=== PATIENT | male | born 1955 | race Caucasian/White ===

== ENCOUNTER 2016-12-19 11:54 | Emergency (ER) | payer OTHER ==
[~2016-12-19] VITALS: Ht 172.7 cm; Wt 133.0 kg
[2016-12-19 11:55] VITALS: BP 120/63; PULSE 104; RESP 24; TEMP 99.5; O2SAT 93
--- NOTE | 2016-12-19 12:15 | PD ---
HPI . blister on right foot Chief Complaint: Diabetic Time Seen by Provider: 12:14 Travel History International Travel<30 days: No Contact w/Intl Traveler<30days: No Traveled to known affect area: No History of Present Illness HPI 61-year-old male with history of diabetes here with complaints of right foot blister. Patient tells me that he had a blister that opened up and they want to have it checked to make sure it is not infected. reports that he develops "pus pockets," and they want to make sure that he does not currently have one. Patient reports pain in the right foot near the blister rated as 8/ 10 without any further radiation. He takes Ultram for daily pain, and tells me that this hasn't really helped his foot blister. He also reports history of neuropathy and tells me that his right leg has been hurting more than usual. He does report driving from [place] here for vacation. They're returning back home on Thursday. He denies any chest pain or shortness of breath. They deny any drainage from this wound. He has no other complaints. PFSH Past Medical History Hx Anticoagulant Therapy: Yes (81MG ASA DAILY) Cardiovascular Problems: Yes ([place], HTN) Diabetes: Yes Respiratory: Yes (ASTHMA) ?: Not Social History Tobacco Use: No Allergies-Medications (Allergen,Severity, Reaction): Coded Allergies: No Known Allergies (Unverified , 12/19/16) Reported Meds & Prescriptions Reported Meds & Active Scripts Active Reported Magnesium (Magnesium Oxide) 400 Mg Tablet PO DAILY Vitamin D (Cholecalciferol) 1,000 Unit Tab Unknown Dose PO DAILY Januvia (Sitagliptin Phosphate) 100 Mg Tab Unknown Dose PO DAILY Lisinopril 10 Mg Tab 10 Mg PO DAILY Metoprolol Tartrate 100 Mg Tab Unknown Dose PO BID Proair Hfa 8.5 GM Inh (Albuterol Sulfate) 90 Mcg/Act Aer 2 Puff INH Q4-6H PRN 108 mcg/actuation Levemir Inj (Insulin Detemir) 1,000 unit/ 10 ML Vial 62 Units SQ BID Do not mix with any other Insulin. Review of Systems General / Constitutional: No: Fever Eyes: No: Visual changes HENT: No: Headaches Cardiovascular: No: Chest Pain or Discomfort Respiratory: No: Shortness of Breath Gastrointestinal: No: Abdominal Pain Genitourinary: No: Dysuria Musculoskeletal: Positive: Pain (right leg ) Skin: Positive Other (right foot blister), No Rash Neurologic: No: Weakness Psychiatric: No: Depression Endocrine: No: Polydipsia Hematologic/Lymphatic: No: Easy Bruising Physical Exam Narrative GENERAL: AAO x 3, no acute distress, Well-nourished, well-developed patient. SKIN: Warm and dry. No visible rashes or bruising. right distal lateral foot small 2 cm x 1.5 cm circular blister without any evidence of infection, drainage , erythema or edema. HEAD: Normocephalic and atraumatic. EYES: No scleral icterus. No injection or drainage. ENT: No nasal drainage noted. Mucous membranes pink. Airway patent. NECK: Supple, trachea midline. No JVD. CARDIOVASCULAR: Regular rate and rhythm without murmurs, gallops, or rubs. RESPIRATORY: Breath sounds equal bilaterally. No accessory muscle use. No rhonchi or rales. GASTROINTESTINAL: Abdomen soft, non-tender, nondistended. EXTREMITIES: No cyanosis, right anterior [place] + pain, pain in right calf. Left leg normal. BACK: Nontender without obvious deformity. No CVA tenderness. 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 Data Data Last Documented VS Vital Signs Date Time Temp Pulse Resp B/P Pulse Ox O2 Delivery O2 Flow Rate FiO2 12/19/16 14:52 77 20 115/58 95 Room Air 12/19/16 11:55 99.5 Orders Us Leg Venous Doppler (12/19/16 12:20) Ketorolac Inj (Toradol Inj) (12/19/16 12:45) Post Op Boot (Shoe) (12/19/16 ) [facility] Medical Decision Making Medical Screen Exam Complete: Yes Emergency Medical Condition: Yes Medical Record Reviewed: Yes Differential Diagnosis Foot ulcer, acute on chronic pain, neuropathy, DVT, less likely cellulitis, less likely abscess Narrative Course 61-year-old male here with complaints of a right foot blister. He also reports pain in his right leg. With his risk factor of recent travel, we'll go ahead and check an ultrasound. The right foot blister is not acutely infected. I do not recommend any intervention other than daily dressing changes. I have discussed this with the patient and his at length. Recommend follow-up with a primary care provider in [place]. Venous Doppler of the right lower extremity negative for DVT. I have discussed all the results with the patient and his . Postop shoe was given for support of the right foot. I recommend offloading as much as possible. Clean dressing was provided before discharge. Case discussed with Dr. Angeles. He was in agreement with the treatment plan. Patient verbalized understanding of instructions, questions were answered, and thanked me for their care. I advised them if their condition worsens, please return to the nearest emergency room for further care. Diagnosis Primary Impression: Blister of foot without infection Qualified Code: S90.821A - Blister of foot without infection, right, initial encounter Patient Instructions: General Instructions Additional Instructions: Please return to emergency department if your symptoms return or worsen. Follow up with your primary care provider. [place] for worsening signs of infection which include fever, increased redness , increased warmth, purulent drainage, increased swelling or streaking. If any of these develop, please go to the nearest emergency room. Try to keep pressure off of this right foot as much as possible. You can continue to use her tramadol as needed for pain. You can also take ibuprofen [id number] as needed. Disposition: 01 DISCHARGE HOME Condition: Stable Asha Rg Dec 19, 2016 12:14
[2016-12-19] MEDS ORDERED: SITA1TAB2 PO (12:35)
[2016-12-19] MEDS ORDERED: ALBUAER3 INH (12:35)
[2016-12-19] MEDS ORDERED: LEVEMIR SQ (12:35)
[2016-12-19] MEDS ORDERED: METO100T PO (12:35)
[2016-12-19] MEDS ORDERED: LISI10TA3 PO (12:35)
[2016-12-19] MEDS ORDERED: VITA100064 PO (12:35)
[2016-12-19] MEDS ORDERED: MAGN400T24 PO (12:35)
[2016-12-19] MEDS ORDERED: KETOROLAC TROMETHAMINE 60 MG/2 ML (IM) VIAL IM ONE (12:45)
--- NOTE | 2016-12-19 13:38 | RADRPT ---
EXAM DATE/TIME: 12/19/2016 12:51 [facility] COMPARISON: No previous studies available for comparison. INDICATIONS : Right leg pain. MEDICAL HISTORY : Hypertension. Diabetes mellitus type 2. Asthma SURGICAL HISTORY : None. ENCOUNTER: Initial ACUITY: 4 - 6 days PAIN SCORE: 8/10 LOCATION: Right leg. TECHNIQUE: Venous ultrasound of the leg was performed from the inguinal ligament to the proximal calf. Real-nikhil e, color Doppler and spectral tracing, compression and augmentation techniques were used. FINDINGS: There is normal compressibility of the deep venous system from the inguinal region to the proximal ca lf. No echogenic clot is seen in the lumen of the common femoral, femoral, popliteal, and posterior tibial veins. There is a normal response of the venous system to proximal and distal augmentation an d respiration. CONCLUSION: Normal examination. Oscar Amaral MD on December 19, 2016 at 13:35 Board Certified Radiologist. This report was verified electronically.
[2016-12-19 14:52] VITALS: BP 115/58; PULSE 77; RESP 20; O2SAT 95
== END 2016-12-19 15:15 | disposition home or self-care (01) ==
LOC: NEPC 11:54
DX: S90.821A Blister (nonthermal), right foot, initial encounter (principal); M79.604 Pain in right leg; E11.9 Type 2 diabetes mellitus without complications; I10 Essential (primary) hypertension; Z79.4 Long term (current) use of insulin; Z79.82 Long term (current) use of aspirin; Z86.69 Personal history of other diseases of the nervous system and sense organs; Z86.79 Personal history of other diseases of the circulatory system; Z87.09 Personal history of other diseases of the respiratory system; X58.XXXA Exposure to other specified factors, initial encounter
CPT/HCPCS: 93971; 96372; 99285; J1885; L3260

== ENCOUNTER 2016-12-21 10:30 | Inpatient (IN) | payer OTHER ==
[2016-12-21] VITALS (9 sets, daily range): BP systolic 103–146; BP diastolic 60–76; PULSE 67–97; RESP 16–20; TEMP 98.5–99.9; O2SAT 94–99
[~2016-12-21] VITALS: Ht 172.7 cm; Wt 135.0 kg
[~2016-12-21 10:30] MED LIST: ALBUAER3 INH; LEVEMIR SQ; LISI10TA3 PO; MAGN400T24 PO; METO100T PO; SITA1TAB2 PO; VITA100064 PO
[2016-12-21] MEDS ORDERED: VANCOMYCIN INJ 1,000 MG in SODIUM CHLOR 0.9% 250 ML INJ 250 ML IV ONE (11:15)
[2016-12-21] MEDS ORDERED: SODIUM CHLOR 0.9% 1000 ML INJ 1,000 ML IV ONE ×2 (11:15→14:15)
--- NOTE | 2016-12-21 11:18 | PD ---
HPI Chief Complaint: Skin Problem Time Seen by Provider: 11:16 Travel History International Travel<30 days: No Contact w/Intl Traveler<30days: No Traveled to known affect area: No History of Present Illness HPI 61-year-old male presents to the emergency department for evaluation of right foot infection. Patient states he first noticed a blister to the plantar aspect of the right foot approximate 5 days ago. He said emergency department 2 days ago. At that time, it was not felt to be infected. Venous Doppler ultrasound of the right lower extremity was ordered which was normal. Patient was discharged home without antibiotics at that time. He states over the past 2 days, symptoms have worsened. He reports low-grade fevers. Current temperature is 99.9. He states he does not feel well. He states that he typically gets this way when he has infection. Patient denies any injury. Patient denies history of diabetic foot infections, but states he does have history of infections. He has a history of CAD with cardiac stents, hypertension, diabetes, diabetic neuropathy. He currently is not on anticoagulants other than a baby aspirin daily. Patient denies any chest pain or short of breath. No abdominal pain. No vomiting. Patient does report history of one kidney from . He reports history of acute kidney injury with infection. PFSH Past Medical History Hx Anticoagulant Therapy: Yes (81MG ASA DAILY) Cardiac Catheterization: Yes (many stents) Cardiovascular Problems: Yes Coronary Artery Disease: Yes Diabetes: Yes Patient Takes Glucophage: No Hypertension: Yes Respiratory: Yes Past Surgical History Coronary Artery Bypass Graft: Yes (7) Social History Alcohol Use: No Tobacco Use: No Substance Use: No Allergies-Medications (Allergen,Severity, Reaction): Coded Allergies: No Known Allergies (Unverified , 12/19/16) Reported Meds & Prescriptions Reported Meds & Active Scripts Active Reported [Imdur] Gabapentin 400 Mg Cap 400 Cap PO TID Lovastatin 20 Mg Tab 20 Mg PO HS Magnesium (Magnesium Oxide) 400 Mg Tablet PO DAILY Vitamin D (Cholecalciferol) 1,000 Unit Tab Unknown Dose PO DAILY Januvia (Sitagliptin Phosphate) 100 Mg Tab Unknown Dose PO DAILY Lisinopril 10 Mg Tab 10 Mg PO DAILY Metoprolol Tartrate 100 Mg Tab Unknown Dose PO BID Proair Hfa 8.5 GM Inh (Albuterol Sulfate) 90 Mcg/Act Aer 2 Puff INH Q4-6H PRN 108 mcg/actuation Levemir Inj (Insulin Detemir) 1,000 unit/ 10 ML Vial 62 Units SQ BID Do not mix with any other Insulin. Review of Systems Except as stated in HPI: all other systems reviewed are Neg Physical Exam Narrative GENERAL: Well-nourished, well-developed male patient, afebrile. SKIN: Focused skin assessment warm/dry. Patient has large open blister to the right plantar foot with surrounding edema and erythema on the plantar foot as well as the dorsal aspect of the right foot. HEAD: Normocephalic. Atraumatic. EYES: No scleral icterus. No injection or drainage. NECK: Supple, trachea midline. No JVD or lymphadenopathy. CARDIOVASCULAR: Regular rate and rhythm without murmurs, gallops, or rubs. Right pedal pulses easily found with Doppler. Capillary refill less than 2 seconds to the digits of the right foot. RESPIRATORY: Breath sounds equal bilaterally. No accessory muscle use. Lungs sounds are clear to auscultation. GASTROINTESTINAL: Abdomen soft, non-tender, nondistended. MUSCULOSKELETAL: No cyanosis, or edema. BACK: Nontender without obvious deformity. No CVA tenderness. Data Data Last Documented VS Vital Signs Date Time Temp Pulse Resp B/P Pulse Ox O2 Delivery O2 Flow Rate FiO2 12/21/16 11:16 18 99 Nasal Cannula 2 12/21/16 11:03 99.9 92 146/76 Orders Complete Blood Count With Diff (12/21/16 11:11) Comprehensive Metabolic Panel (12/21/16 11:11) Lactic Acid Sepsis Protocol (12/21/16 11:11) Blood Culture (12/21/16 11:11) Ecg Monitoring (12/21/16 11:11) Iv Access Insert/Monitor (12/21/16 11:11) Oximetry (12/21/16 11:11) Oxygen Administration (12/21/16 11:11) Sodium Chlor 0.9% 1000 Ml Inj (Ns 1000 M (12/21/16 11:15) Westergren Sedimentation Rate (12/21/16 11:11) C-Reactive Protein (Crp) (12/21/16 11:11) Foot, Complete ([id number]) (12/21/16 ) Vancomycin Inj (Vancomycin Inj) (12/21/16 11:15) Tetanus/Diphtheria Tox Adult (Tetanus/Di (12/21/16 11:30) Morphine Inj (Morphine Inj) (12/21/16 12:30) Labs Laboratory Tests Test 12/21/16 12/21/16 11:24 11:25 White Blood Count 13.7 TH/MM3 Red Blood Count 4.89 MIL/MM3 Hemoglobin 13.0 GM/DL Hematocrit 39.6 % Mean Corpuscular Volume 81.0 FL Mean Corpuscular Hemoglobin 26.6 PG Mean Corpuscular Hemoglobin 32.8 % Concent Red Cell Distribution Width 17.1 % Platelet Count 201 TH/MM3 Mean Platelet Volume 7.5 FL Neutrophils (%) (Auto) 87.9 % Lymphocytes (%) (Auto) 5.6 % Monocytes (%) (Auto) 5.6 % Eosinophils (%) (Auto) 0.5 % Basophils (%) (Auto) 0.4 % Neutrophils # (Auto) 12.0 TH/MM3 Lymphocytes # (Auto) 0.8 TH/MM3 Monocytes # (Auto) 0.8 TH/MM3 Eosinophils # (Auto) 0.1 TH/MM3 Basophils # (Auto) 0.1 TH/MM3 CBC Comment DIFF FINAL Differential Comment Erythrocyte Sedimentation Rate 45 mm/hr Sodium Level 127 MEQ/L Potassium Level 5.4 MEQ/L Chloride Level 97 MEQ/L Carbon Dioxide Level 22.8 MEQ/L Anion Gap 7 MEQ/L Blood Urea Nitrogen 38 MG/DL Creatinine 1.52 MG/DL Estimat Glomerular Filtration 47 ML/MIN Rate Random Glucose 360 MG/DL Calcium Level 8.7 MG/DL Total Bilirubin 1.1 MG/DL Aspartate Amino Transf 27 U/L (AST/SGOT) Alanine Aminotransferase 34 U/L (ALT/SGPT) Alkaline Phosphatase 98 U/L C-Reactive Protein 29.00 MG/DL Total Protein 8.2 GM/DL Albumin 3.1 GM/DL Lactic Acid Level 1.4 mmol/L [facility] Medical Decision Making Medical Screen Exam Complete: Yes Emergency Medical Condition: Yes Medical Record Reviewed: Yes Interpretation(s) x-ray right foot - CONCLUSION: Small linear foreign body is seen in the soft tissues along the plantar lateral aspect near the fifth metatarsal. There is also soft tissue swelling in this location. Differential Diagnosis Cellulitis versus abscess versus osteomyelitis versus sepsis Narrative Course 61-year-old male presents to the emergency department for evaluation of right foot infection that started about 5 days ago with a blister. Patient has not yet been on antibiotics. He does have significant cellulitis to the right plantar and dorsal foot. CBC, CMP, lactic acid, blood cultures 2, sedimentation rate, CRP are ordered and pending. Tetanus immunization is updated. X-ray of the right foot is ordered and pending. Vancomycin 1 g IV and normal saline 1 L IV bolus are given. CBC shows leukocytosis of 13.7, neutrophilia 87.9. CMP shows hyponatremia 127, hyperkalemia 5.4, BUN 38, creatinine 1.52, glucose 360. Lactic acid is 1.4. Sed rate is 45. CRP is 29. X-ray of the right foot shows small linear foreign body is seen in the soft tissues along the plantar lateral aspect near the fifth metatarsal. There is also soft tissue swelling in this location. Patient will be admitted to the hospital for further evaluation. Patient verbalizes agreement to this. Residents are paged for admission. Residents accepted admission. Sepsis Criteria SIRS Criteria (2 or more): WBC > 05043, < 4000 or > 10% bands Diagnosis Primary Impression: Cellulitis of right foot Additional Impressions: Hyponatremia Hyperkalemia Admitting Information Admitting Physician Requests: Admit Cathie Cohen Dec 21, 2016 11:18
[2016-12-21] MEDS ORDERED: TETANUS/DIPHTHERIA TOXOID ADULT 0.5 ML VIAL IM ONE (11:30)
--- NOTE | 2016-12-21 11:41 | RADRPT ---
EXAM DATE/TIME: 12/21/2016 11:29 [facility] COMPARISON: No previous studies available for comparison. INDICATIONS : Right foot pain and swelling. Patient states he has had a blister for one week. MEDICAL HISTORY : Hypertension. Diabetes mellitus type II. SURGICAL HISTORY : None. ENCOUNTER: Initial ACUITY: 1 week PAIN SCORE: 6/10 LOCATION: Right foot. FINDINGS: Three view examination of the right foot demonstrates no dislocation, or fracture. The tarsal bones appear intact. There is soft tissue swelling along the plantar surface of the foot. There appears to be a small radio opaque foreign body in the soft tissues along the plantar lateral aspect near the f ifth metatarsal. Vascular calcifications are seen in the soft tissues. CONCLUSION: Small linear foreign body is seen in the soft tissues along the plantar lateral aspect near the fifth metatarsal. There is also soft tissue swelling in this location. Stanton Rico MD on December 21, 2016 at 11:37 Board Certified Radiologist. This report was verified electronically.
[2016-12-21 11:50] LABS: BASOPHIL # 0.1 TH/MM3 (0-0.2); BASOPHIL % 0.4 % (0.0-2.0); EOSINOPHIL # 0.1 TH/MM3 (0-0.4); EOSINOPHIL % 0.5 % (0.0-4.0); HEMATOCRIT 39.6 % (39.0-51.0); HEMO FLAGS DIFF FINAL; LYMPH % 5.6 % (9.0-44.0); LYMPHOCYTE # 0.8 TH/MM3 (1.0-4.8); MEAN CORPUSCULAR HEMOGLOBIN 26.6 PG (27.0-34.0); MEAN CORPUSCULAR HGB CONC 32.8 % (32.0-36.0); MONO % 5.6 % (0.0-8.0); NEUT % 87.9 % (16.0-70.0); PLATELET COUNT 201 TH/MM3 (150-450); RED BLOOD COUNT 4.89 MIL/MM3 (4.50-5.90); RED CELL DISTRIBUTION WIDTH 17.1 % (11.6-17.2); WHITE BLOOD COUNT 13.7 TH/MM3 (4.0-11.0)
[2016-12-21 12:09] LABS: ALT (GPT) 34 U/L (12-78)
[2016-12-21 12:12] LABS: ANION GAP 7 MEQ/L (5-15); AST (GOT) 27 U/L (15-37); BICARBONATE 22.8 MEQ/L (21.0-32.0); BLOOD UREA NITROGEN 38 MG/DL (7-18); CHLORIDE 97 MEQ/L (98-107); GLOMERULAR FILTRATION RATE 47 ML/MIN (>89); POTASSIUM 5.4 MEQ/L (3.5-5.1); SODIUM (NA) 127 MEQ/L (136-145)
[2016-12-21 12:17] LABS: ALKALINE PHOSPHATASE 98 U/L (45-117); TOTAL BILIRUBIN ADULT 1.1 MG/DL (0.2-1.0)
[2016-12-21] MEDS ORDERED: MORPHINE SULFATE 4 MG/ML INJ IV PUSH ONE (12:30)
[2016-12-21] MEDS ORDERED: GABA400C5 PO (12:41)
[2016-12-21] MEDS ORDERED: Imdur (12:41)
[2016-12-21] MEDS ORDERED: LOVA20TA PO (12:41)
[2016-12-21] MEDS ORDERED: PIPERACIL-TAZO 3.375 GM PREMIX 50 ML IV ONE (13:30)
--- NOTE | 2016-12-21 13:33 | HHI.HP ---
HPI Service Family Medicine Primary Care Physician Unknown Admission Diagnosis right foot celluliits, hyponatremia, hyperkalemia Diagnoses: International Travel<30 Days: No Contact w/Intl Traveler<30days: No Known Affected Area: No History of Present Illness Patient is a 61-year-old male with a history of uncontrolled diabetes. Presented today due to worsening right foot cellulitis. 2 days ago patient was found to have a right foot blister at which time he presented to the ED. Did not appear to be infectious at the time and was discharged with no antibiotics. He presented again today due to worsening malaise, decreased appetite, fatigue , mild subjective fever, dizziness, headache. Pain described as a constant ache. No associated nausea/vomiting or dysuria. No history of trauma or preceding incident to lesion. Was walking around the water at [place] without shoes when he noticed initial blister. No ocean or beach exposure. History is significant for prior MRSA infections of lower legs, back, face. Severe peripheral neuropathy limits sensation of feet. (Manuela Peña MD R2) Review of Systems Constitutional: COMPLAINS OF: Fever, Dizziness, Change in appetite Eyes: DENIES: Eye inflammation Ears, nose, mouth, throat: DENIES: Throat pain, Running Nose Respiratory: DENIES: Cough, Sputum production, Shortness of breath Cardiovascular: COMPLAINS OF: Lower Extremity Edema, DENIES: Chest pain Gastrointestinal: DENIES: Abdominal pain, Nausea, Vomiting Genitourinary: DENIES: Dysuria Musculoskeletal: COMPLAINS OF: Joint Swelling Integumentary: COMPLAINS OF: Abnormal pigmentation Neurologic: COMPLAINS OF: Headache, Paresthesias (Manuela Peña MD R2) Past Family Social History Past Medical History DM with peripheral neuropathy, A1c around 11 HTN HLD Asthma CAD: required 4-6 stents and CABG VT x2 last episode 2014 Past Surgical History CABG Stents x4-6 Adenoid/tonsill/uvula removal for sleep apnea Reported Medications Reported Meds & Active Scripts Active Reported [Imdur] Gabapentin 400 Mg Cap 400 Cap PO TID Lovastatin 20 Mg Tab 20 Mg PO HS Magnesium (Magnesium Oxide) 400 Mg Tablet PO DAILY Vitamin D (Cholecalciferol) 1,000 Unit Tab Unknown Dose PO DAILY Januvia (Sitagliptin Phosphate) 100 Mg Tab Unknown Dose PO DAILY Lisinopril 10 Mg Tab 10 Mg PO DAILY Metoprolol Tartrate 100 Mg Tab Unknown Dose PO BID Proair Hfa 8.5 GM Inh (Albuterol Sulfate) 90 Mcg/Act Aer 2 Puff INH Q4-6H PRN 108 mcg/actuation Levemir Inj (Insulin Detemir) 1,000 unit/ 10 ML Vial 62 Units SQ BID Do not mix with any other Insulin. (Manuela Peña MD R2) Allergies: Coded Allergies: No Known Allergies (Unverified , 12/19/16) Family History Mother: lived to 75 Father: crime scene examiner, lung disease Social History Lives in [place] Tobacco: Denies Alcohol: denies Illicit: Denies (Manuela Peña MD R2) Physical Exam Vital Signs Vital Signs Date Time Temp Pulse Resp B/P Pulse Ox O2 Delivery O2 Flow Rate FiO2 12/21/16 11:16 18 99 Nasal Cannula 2 12/21/16 11:16 98 Nasal Cannula 2 12/21/16 11:03 99.9 92 18 146/76 97 Nasal Cannula 2 12/21/16 10:59 91 18 12/21/16 10:32 99.2 97 16 128/73 97 Physical Exam GENERAL: This is a well-nourished, well-developed patient, in no apparent distress. Resting comfortably in bed. SKIN: * Right foot erythema on plantar and dorsal aspect up to lateral malleolus. Warm to touch. 4cm liter lesion on lateral aspect of the plantar foot. No active drainage. * No fluctuance or evidence of abscess. No induration. * Left foot unremarkable EYES: Pupils equal round and reactive. Extraocular motions intact. Very mild scleral icterus. No injection or drainage. ENT: Nose without bleeding, purulent drainage. Throat without erythema, tonsillar hypertrophy or exudate. Airway patent. NECK: Trachea midline. No lymphadenopathy. CARDIOVASCULAR: Regular rate and rhythm without murmurs, gallops, or rubs. RESPIRATORY: Clear to auscultation. Breath sounds equal bilaterally. No wheezes , rales, or rhonchi. GASTROINTESTINAL: Abdomen soft, non-tender, nondistended. No guarding. MUSCULOSKELETAL: Extremities without clubbing, cyanosis. 1+ pitting edema on right lower extremity. No calf tenderness. 2+pedal pulses bilaterally NEUROLOGICAL: Awake and alert. Motor grossly within normal limits. Decreased sensation on bilateral feet. Normal speech. Laboratory Laboratory Tests Test 12/21/16 12/21/16 11:24 11:25 White Blood Count 13.7 Red Blood Count 4.89 Hemoglobin 13.0 Hematocrit 39.6 Mean Corpuscular Volume 81.0 Mean Corpuscular Hemoglobin 26.6 Mean Corpuscular Hemoglobin 32.8 Concent Red Cell Distribution Width 17.1 Platelet Count 201 Mean Platelet Volume 7.5 Neutrophils (%) (Auto) 87.9 Lymphocytes (%) (Auto) 5.6 Monocytes (%) (Auto) 5.6 Eosinophils (%) (Auto) 0.5 Basophils (%) (Auto) 0.4 Neutrophils # (Auto) 12.0 Lymphocytes # (Auto) 0.8 Monocytes # (Auto) 0.8 Eosinophils # (Auto) 0.1 Basophils # (Auto) 0.1 CBC Comment DIFF FINAL Differential Comment Erythrocyte Sedimentation Rate 45 Sodium Level 127 Potassium Level 5.4 Chloride Level 97 Carbon Dioxide Level 22.8 Anion Gap 7 Blood Urea Nitrogen 38 Creatinine 1.52 Estimat Glomerular Filtration 47 Rate Random Glucose 360 Calcium Level 8.7 Total Bilirubin 1.1 Aspartate Amino Transf 27 (AST/SGOT) Alanine Aminotransferase 34 (ALT/SGPT) Alkaline Phosphatase 98 C-Reactive Protein 29.00 Total Protein 8.2 Albumin 3.1 Lactic Acid Level 1.4 Date/Time Procedure Status Source Growth 12/21/16 11:25 Aerobic Blood Culture Received Blood Peripheral Pending 12/21/16 11:25 Anaerobic Blood Culture Received Blood Peripheral Pending (Manuela Peña MD R2) Result Diagram: 12/21/16 1124 12/21/16 1124 Imaging Last Impressions Foot X-Ray 12/21/16 0000 Signed Impressions: Service Date/Time: Wednesday, December 21, 2016 11:29 - CONCLUSION: Small linear foreign body is seen in the soft tissues along the plantar lateral aspect near the fifth metatarsal. There is also soft tissue swelling in this location. Stanton Rico MD (Manuela Peña MD R2) Assessment and Plan Assessment and Plan 61-year-old male with history significant for uncontrolled diabetes. Admitted for right foot cellulitis Code Status Full Discussed Condition With Dr. Marquez (Manuela Peña MD R2) Attending Attestation The patient has been seen and examined. The chart and all resident notes have been reviewed. I agree that inpatient care is appropriate and that a two midnight stay is expected for the reasons documented in the resident history and physical. I have discussed this with the resident and certify the resident s order for inpatient admission. Patient seen and examined. Case reviewed and discussed Please refer to resident H&P for further details regarding HPI, ROS, PMH, SurgHx , FH and SocHx In summary, patient is a 61yoM with a history of uncontrolled DM peripheral neuropathy presenting with worsening redness, edema and drainage from a R foot wound. Patient reports he first noted the wound 4 days prior to admission. Denies fevers, chills. [place] and has not been checking his sugars. He is seen in his hospital bed, reporting he is already feeling better, he ate a full meal, which previously he hasn't been able to eat in days. GENERAL: obese male, wdwn NAD, sitting up in bed SKIN: Warm and dry. R lateral plantar aspect of foot with 2cm necrotic foot wound. There is surrounding erythema and edema. Significant loss of sensation in feet 2/2 neuropathy. HEAD: Normocephalic. At EYES: No scleral icterus. No injection or drainage. ENT: OP Clear. mmm NECK: Supple, trachea midline. No JVD or lymphadenopathy. CARDIOVASCULAR: Regular rate and rhythm without murmurs, gallops, or rubs. RESPIRATORY: Breath sounds equal bilaterally. No accessory muscle use. GASTROINTESTINAL: Abdomen soft, non-tender, nondistended. MUSCULOSKELETAL: No cyanosis,there is 1+ edema. b/l LE to mid [place] BACK: Nontender without obvious deformity. No CVA tenderness. NEURO: Awake and alert. Normal speech. CN grossly intact. A/P: 61yoM admitted with: Diabetic wound infection Cellulitis Uncontrolled DM Peripheral neuropathy CAD s/p cardiac stenting, CABG Leukocytosis Acute on chronic kidney disease Hyperkalemia Empiric antibiotic therapy Podiatry consult, appreciate recs HOWIE Control glucose Obtain recent stress test from control director Resume home meds as appropriate Patient seen and examined. Case reviewed and discussed Agree with plan of care as discussed with me and documented in the resident note (Milagros Hart MD) Problem List: (1) Cellulitis of right foot Status: Acute Plan: Progressive worsening of cellulitis of right foot in a diabetic. Clinically symptomatic systemically but does not meet sepsis criteria. No history of trauma but there is water exposure to site. -Mild leukocytosis and elevated ESR -No x-ray findings suggestive of osteomyelitis. * Hold on MRI with and without contrast as I suspect renal function should improve with hydration. Consider obtaining for evaluation of osteomyelitis -Blood cultures pending -Obtain wound culture if site begins to drain Consult podiatry: Appreciate recommendations Imaging: * X-ray significant for small linear foreign body along the plantar lateral aspect near the fifth metatarsal. Medications: * Vancomycin (12/21- * Zosyn (12/21- (2) Electrolyte abnormality Status: Acute Plan: Denies history of CKD. Found to have hyponatremia and hyperkalemia. Suspect some electrolyte abnormalities due to elevated glucose. -Serial BMP and fluid hydration -Cardiac telemetry -Will obtain baseline EKG (3) DM (diabetes mellitus) Status: Chronic Plan: History of uncontrolled diabetes with last reported A1c of 11. -Hold home Levemir dosing -Levemir 20 units BID, will likely need increase -Low-dose sliding scale -Continue home gabapentin (4) CAD (coronary artery disease) Status: Chronic Plan: Significant cardiac history requiring multiple cardiac caths and a CABG. -Continue home Imdur, metoprolol, pravastatin -Hold lisinopril until potassium improves (5) Nutrition, metabolism, and development symptoms Status: Acute Plan: Diet: Diabetic diet Fluids: 2L bolus + NS at 120 Electrolytes: See plan above DVT prophylaxis: SCDs on left leg, Lovenox once I speak with podiatry about potential intervention GI prophylaxis: None indicated ADDENDUM at 1615: Spoke with podiatry Dr. Mann. After discussion with Dr. Hart, will need to reassess patient in the AM for further cardiac and electrolyte evaluation. I did speak speak with patient who denied any chest pain with activities of daily living and when walking up stairs or exerting himself. -Recommend obtaining CT for eval of osteo. View will be limited due to the lack of contrast from KEVIN. -Also recommended obtaining HOWIE -Nothing by mouth after midnight (Manuela Peña MD R2) Physician Certification 2 Midnight Certification Type: Admission for Inpatient Services Order for Inpatient Services The services are ordered in accordance with Medicare regulations or non- Medicare payer requirements, as applicable. In the case of services not specified as inpatient-only, they are appropriately provided as inpatient services in accordance with the 2-midnight benchmark. Estimated LOS (days): 3 days is the estimated time the patient will need to remain in the hospital, assuming treatment plan goals are met and no additional complications. Post-Hospital Plan: Home (Manuela Peña MD R2) Manuela Peña MD R2 Dec 21, 2016 13:33 Milagros Hart MD Dec 21, 2016 23:08
[2016-12-21] MEDS: SODIUM CHLOR 0.9% 1000 ML INJ 1,000 ML IV SCH ×2 (13:59→22:19)
[2016-12-21] MEDS ORDERED: SODIUM CHLORIDE 0.9% FLUSH 10 ML FLUSH IV FLUSH PRN (14:00)
[2016-12-21] MEDS ORDERED: BISACODYL 10 MG SUPP RECTAL PRN (14:00)
[2016-12-21] MEDS ORDERED: LACTULOSE SYRUP 20 GM/30 ML CUP PO PRN (14:00)
[2016-12-21] MEDS ORDERED: SENNOSIDES 8.6 MG TAB PO PRN (14:00)
[2016-12-21] MEDS ORDERED: ONDANSETRON HCL 4 MG/2 ML VIAL IVP PRN (14:00)
[2016-12-21] MEDS ORDERED: MAGNESIUM HYDROXIDE SUSP 30 ML CUP PO PRN (14:00)
[2016-12-21] MEDS ORDERED: NALOXONE HCL 0.4 MG/ML AMP IV PRN ×2 (14:00→14:15)
[2016-12-21] MEDS ORDERED: ACETAMINOPHEN 325 MG TAB PO PRN (14:15)
[2016-12-21] MEDS ORDERED: DEXTROSE 50% IN WATER 50 ML VIAL(D50) IV PRN (14:15)
[2016-12-21] MEDS ORDERED: GLUCAGON 1 MG/ML VIAL OTHER PRN (14:15)
[2016-12-21] MEDS ORDERED: ACETAMINOPHEN/HYDROcodone 325 MG/5 MG TAB PO PRN (14:15)
[2016-12-21] MEDS ORDERED: Vancomycin Consult Pharmacy 1 EA OTHER SCH (15:30)
[2016-12-21] MEDS ORDERED: RESP: ALBUTEROL 2.5 MG/3 ML NEB (PRN) NEB (16:00)
[2016-12-21] MEDS ORDERED: hydrALAZINE HCL 10 MG TAB PO PRN (16:00)
[2016-12-21] MEDS: ACETAMINOPHEN/HYDROcodone 325 MG/10 MG TAB PO PRN ×2 (16:34→21:23)
[2016-12-21] MEDS: INSULIN ASPART SUPPLEMENTAL SCALE SQ SCH ×2 (16:38→21:27)
[2016-12-21 18:33] LABS: BICARBONATE 25.7 MEQ/L (21.0-32.0); POTASSIUM 4.9 MEQ/L (3.5-5.1)
--- NOTE | 2016-12-21 19:05 | RADRPT ---
EXAM DATE/TIME: 12/21/2016 18:39 [facility] COMPARISON: FOOT RIGHT COMPLETE ([id number]), December 21, 2016, 11:29. INDICATIONS : Cellulitis right foot. Non-healing wound. Osteomyelitis. RADIATION DOSE: 7.29 CTDIvol (mGy) MEDICAL HISTORY : Cardiovascular disease. Hypertension. Diabetes. SURGICAL HISTORY : Heart 2 way bypass ENCOUNTER: Initial ACUITY: 1 day PAIN SCALE: 2/10 LOCATION: Right middle foot TECHNIQUE: Volumetric scanning of the foot was performed. Using automated exposure control and adjustment of th e mA and/or kV according to patient size, radiation dose was kept as low as reasonably achievable to obtain optimal diagnostic quality images. DICOM format image data is available electronically for re view and comparison. FINDINGS: There is focal soft-tissue swelling adjacent to the head of the right 5th metatarsal. No definite ly tic or destructive lesions are identified involving the underlying bone. No radiopaque foreign body is noted. No fracture or dislocation of the right foot is noted. No definite deep soft tissue absce ss is identified on this examination. If there is strong clinical concern for osteomyelitis, three-p hase bone scan or MRI with contrast would be more sensitive in this patient. Achilles calcaneal spur formation is noted. CONCLUSION: 1. Focal soft-tissue swelling adjacent to the right 5th metatarsal head suggesting cellulitis. No d efinite underlying lytic erosive changes are noted. If there is strong clinical concern for acute os teomyelitis, a three-phase bone scan or MRI of the foot with contrast would be more sensitive in this patient. 2. Small Achilles calcaneal spur. 3. No acute fracture or dislocation. 4. No radiopaque foreign body identified. Andre Hernandez MD on December 21, 2016 at 18:54 Board Certified Radiologist. This report was verified electronically.
[2016-12-21 19:57] LABS: BICARBONATE 22.9 MEQ/L (21.0-32.0); POTASSIUM 5.4 MEQ/L (3.5-5.1)
[2016-12-21] MEDS: SODIUM CHLORIDE 0.9% FLUSH 10 ML FLUSH IV FLUSH SCH (21:00)
[2016-12-21] MEDS ORDERED: INSULIN DETEMIR 100 UNITS/ML VIAL SQ SCH (21:00)
[2016-12-21] MEDS ORDERED: SODIUM CHLORID 0.9% IV SCH (21:00)
[2016-12-21] MEDS ORDERED: SODIUM CHLORIDE 0.9% FLUSH 10 ML FLUSH IV FLUSH SCH (21:00)
[2016-12-21] MEDS ORDERED: VANCOMYCIN IV SCH (21:00)
[2016-12-21] MEDS: DOCUSATE SODIUM 50 MG/SENNA 8.6 MG TAB PO SCH (21:15)
[2016-12-21] MEDS: GABAPENTIN 400 MG CAP PO SCH (21:15)
[2016-12-21] MEDS: PRAVASTATIN SOD 20 MG TAB PO SCH (21:15)
[2016-12-21] MEDS: ASPIRIN 81 MG CHEW TAB PO SCH (21:18)
[2016-12-21] MEDS: PIPERACIL-TAZO 3.375 GM PREMIX 50 ML IV SCH (21:18)
[2016-12-21] MEDS: VANCOMYCIN INJ 2,000 MG in SODIUM CHLORID 0.9% 500 ML INJ 500 ML IV SCH (21:19)
[2016-12-21] MEDS: INSULIN DETEMIR 100 UNITS/ML VIAL SQ SCH (21:27)
[2016-12-21 23:28] LABS: BICARBONATE 23.6 MEQ/L (21.0-32.0); POTASSIUM 5.2 MEQ/L (3.5-5.1)
[2016-12-22] VITALS (8 sets, daily range): BP systolic 98–133; BP diastolic 54–78; PULSE 66–81; RESP 16–18; TEMP 96.6–100.5; O2SAT 92–97
[2016-12-22] MEDS: ACETAMINOPHEN/HYDROcodone 325 MG/10 MG TAB PO PRN ×3 (03:18→23:47)
[2016-12-22] MEDS: PIPERACIL-TAZO 3.375 GM PREMIX 50 ML IV SCH ×4 (03:18→20:10)
[2016-12-22 03:44] LABS: AUTOMATED NEUTROPHIL # 8.5 TH/MM3 (1.8-7.7); BASOPHIL # 0.1 TH/MM3 (0-0.2); BASOPHIL % 0.5 % (0.0-2.0); EOSINOPHIL # 0.1 TH/MM3 (0-0.4); EOSINOPHIL % 1.2 % (0.0-4.0); HEMATOCRIT 35.9 % (39.0-51.0); HEMO FLAGS DIFF FINAL; LYMPH % 7.8 % (9.0-44.0); LYMPHOCYTE # 0.8 TH/MM3 (1.0-4.8); MEAN CELL VOLUME 81.7 FL (80.0-100.0); MEAN CORPUSCULAR HEMOGLOBIN 27.1 PG (27.0-34.0); MEAN CORPUSCULAR HGB CONC 33.1 % (32.0-36.0); MONO % 6.3 % (0.0-8.0); NEUT % 84.2 % (16.0-70.0); PLATELET COUNT 181 TH/MM3 (150-450); RED BLOOD COUNT 4.39 MIL/MM3 (4.50-5.90); RED CELL DISTRIBUTION WIDTH 17.3 % (11.6-17.2); WHITE BLOOD COUNT 10.1 TH/MM3 (4.0-11.0)
[2016-12-22 04:03] LABS: BICARBONATE 24.6 MEQ/L (21.0-32.0)
[2016-12-22 04:29] LABS: ALKALINE PHOSPHATASE 84 U/L (45-117); ALT (GPT) 28 U/L (12-78); ANION GAP 6 MEQ/L (5-15); AST (GOT) 18 U/L (15-37); BICARBONATE 24.9 MEQ/L (21.0-32.0); BLOOD UREA NITROGEN 28 MG/DL (7-18); CHLORIDE 104 MEQ/L (98-107); GLOMERULAR FILTRATION RATE 61 ML/MIN (>89); POTASSIUM 5.2 MEQ/L (3.5-5.1); SODIUM (NA) 135 MEQ/L (136-145); TOTAL BILIRUBIN ADULT 0.7 MG/DL (0.2-1.0)
[2016-12-22] MEDS: SODIUM CHLOR 0.9% 1000 ML INJ 1,000 ML IV SCH ×3 (06:39→21:20)
[2016-12-22] MEDS: INSULIN ASPART SUPPLEMENTAL SCALE SQ SCH ×4 (07:00→21:16)
[2016-12-22] MEDS: ISOSORBIDE MONONITRATE 60 MG TAB PO SCH (07:45)
[2016-12-22] MEDS: METOPROLOL SUCCINATE 25 MG EXTENDED RELEASE TAB PO SCH (08:21)
[2016-12-22] MEDS: GABAPENTIN 400 MG CAP PO SCH ×2 (08:21→20:10)
[2016-12-22] MEDS: INSULIN DETEMIR 100 UNITS/ML VIAL SQ SCH ×2 (08:21→21:15)
[2016-12-22] MEDS: SODIUM CHLORIDE 0.9% FLUSH 10 ML FLUSH IV FLUSH SCH ×2 (08:21→20:12)
[2016-12-22] MEDS: ASPIRIN 81 MG CHEW TAB PO SCH (08:21)
[2016-12-22] MEDS: DOCUSATE SODIUM 50 MG/SENNA 8.6 MG TAB PO SCH ×2 (08:21→20:11)
--- NOTE | 2016-12-22 08:23 | MB ---
cc: ARSENIO ABRAMS DPM DATE OF CONSULTATION: 12/22/2016 REASON FOR CONSULTATION Right foot infection. This is a 61-year-old male. He has a history of worsening cellulitis. Two days ago he had a blister that was forming and presented to the ED. It appeared that he was deemed not to have an infection and was discharged without any antibiotics. He had worsening right foot pain and his insisted that he come back to the hospital and now there are currently signs of infection. I am seeing the patient bedside. He still admits some soreness and pain, however, his appetite appears to be returning. He denies any systemic signs of infection. PAST MEDICAL HISTORY 1. Diabetes with peripheral neuropathy, uncontrolled, A1c around 11. 2. Hypertension. 3. Hyperlipidemia. 4. Asthma. 5. CAD with stent placement. Apparently he had a work-up last September in which he had a cardiac cath and per the patient's it was deemed stable. Last NM was 2014. PAST SURGICAL HISTORY 1. CABG. 2. Stents. 3. Tonsillectomy and adenoidectomy. 4. Uvula removed for sleep apnea. MEDICATIONS Reported outpatient medications reviewed. Inpatient medications also reviewed. He is on antibiotics, vancomycin and Zosyn. ALLERGIES None listed. PHYSICAL EXAMINATION VITAL SIGNS: Temperature 97.6, pulse rate 66, respiratory rate 18, blood pressure 101/55. He is satting 95% on room air. GENERAL: This is an alert and oriented gentleman seen bedside, exhibiting nonlabored respirations. He is verbal and appropriate. RIGHT LOWER EXTREMITY: The right lower extremity is examined. There is noted to be a fluctuant area at the plantar aspect of the foot with a dry necrotic type ulcer but there is no obvious soft tissue emphysema, no odor. The plantar aspect of the foot has a periphery at this necrotic area approximately 3 cm that appears to show signs of ischemic changes. On the dorsum of the foot there is some edema and there is a small cellulitic line that appears to be coursing up to the midfoot. Upon range of motion of the digits there is some pain. Pulses are palpable. Sensation is decreased to light touch. LABORATORY FINDINGS White blood cell count 13.7, trending down to 10. Hemoglobin 11, hematocrit 35, platelet count 181. ESR is 45. Chem-7: Sodium 135, potassium 5.0, chloride 104, CO2 24.6, BUN 28, creatinine 1.23, random glucose 139. IMAGING FINDINGS Foot x-ray: Small linear foreign body with soft tissue along the plantar surface near the 5th MPJ. There is associated soft tissue swelling. CT: Focal soft tissue swelling adjacent to the right 5th metatarsal suggesting cellulitis. No definitive underlying lytic or erosive changes. If strong concern for osteomyelitis, bone scan indicated. Of note, no radiopaque foreign body identified on the CT. ASSESSMENT AND PLAN Right diabetic foot infection, possible evolving deep abscess. It is my recommendation that incision, drainage and debridement take place today to obtain deep cultures and to debulk the infection site. The patient was advised on the severity of the infection, the possible need for long-term antibiotics ranging from 2-4 weeks. I will see the patient later on today for surgery. The patient does have a cardiac issue. It appears that his last follow-up with his bending frame operator deemed him stable; however, I will leave this to Medicine if they want a cardiac work-up before surgery later on today. LUCY Harvey/DILLAN /7:56 AM /8:14 AM
[2016-12-22] MEDS ORDERED: LISINOPRIL 10 MG TAB PO SCH (09:00)
[2016-12-22] MEDS: MORPHINE SULFATE 4 MG/ML INJ IV PRN ×2 (09:49→21:18)
--- NOTE | 2016-12-22 10:08 | RADRPT ---
EXAM DATE/TIME: 12/21/2016 00:00 [facility] COMPARISON: FOOT RIGHT COMPLETE ([id number]), December 21, 2016, 11:29. INDICATIONS : Right foot cellulitis, Hyponatremia, Hyperkalemia TECHNIQUE: Four-cuff ankle and brachial pressures were obtained. Pulse cuff waveform tracings of the ankles were recorded, and ankle-brachial indices were calculated. PRESSURES (mmHg): Brachial (arm): Right 85 Left IV SITE Ankle: Right 159 Left CNO>240 HOWIE: Right 1.87 Left CNO TBI: Right 1.39 Left 2.27 PULSED CUFF WAVEFORMS: Demonstrate monophasic tracings with diminished amplitude particularly in the toe on the right. CONCLUSION: Poor compressibility of the vessels bilaterally consistent with extensive vascular calcification. Wav eform blunting indicative of some degree of steno-occlusive disease on the right, however strictly eq uivocal Thom Hamilton MD on December 22, 2016 at 10:03 Board Certified Radiologist. This report was verified electronically.
[2016-12-22] MEDS ORDERED: PROPOFOL 200 MG/20 ML AMP IV ONE (12:00)
[2016-12-22] MEDS ORDERED: ONDANSETRON HCL 4 MG/2 ML VIAL IV PUSH ONE (12:00)
--- NOTE | 2016-12-22 14:36 | HHI.FPPN ---
Subjective Remarks No acute events overnight. Afebrile, vital signs stable. Patient with no complaints this morning. (Jessika Meza MD R3) Objective Vitals Vital Signs Date Time Temp Pulse Resp B/P Pulse Ox O2 Delivery O2 Flow Rate FiO2 12/22/16 12:00 96.6 70 16 115/62 93 12/22/16 08:00 99.1 72 16 133/66 95 12/22/16 04:00 97.6 66 18 101/55 95 12/22/16 00:00 97.0 67 18 98/54 94 12/21/16 21:27 67 12/21/16 20:42 96 21 12/21/16 20:00 98.5 75 20 103/60 94 12/21/16 16:15 98.5 82 18 133/63 96 12/21/16 14:50 96 21 I/O 12/21/16 12/21/16 12/21/16 12/22/16 12/22/16 12/22/16 07:00 15:00 23:00 07:00 15:00 23:00 Intake Total 802 ml 1274 ml Balance 802 ml 1274 ml Intake Oral 240 ml 240 ml IV Total 562 ml 1034 ml # Voids 1 2 # Bowel Movements 0 0 (Jessika Meza MD R3) Result Diagram: 12/22/16 0331 12/22/16 0331 Objective Remarks GENERAL: This is a well-nourished, well-developed patient, in no apparent distress. Resting comfortably in bed. SKIN: * Right foot erythema on plantar and dorsal aspect up to lateral malleolus. Warm to touch. 4cm liter lesion on lateral aspect of the plantar foot. No active drainage. * No fluctuance or evidence of abscess. No induration. * Left foot unremarkable EYES: Pupils equal round and reactive. Extraocular motions intact. Very mild scleral icterus. No injection or drainage. ENT: Nose without bleeding, purulent drainage. Throat without erythema, tonsillar hypertrophy or exudate. Airway patent. NECK: Trachea midline. No lymphadenopathy. CARDIOVASCULAR: Regular rate and rhythm without murmurs, gallops, or rubs. RESPIRATORY: Clear to auscultation. Breath sounds equal bilaterally. No wheezes , rales, or rhonchi. GASTROINTESTINAL: Abdomen soft, non-tender, nondistended. No guarding. MUSCULOSKELETAL: Extremities without clubbing, cyanosis. 1+ pitting edema on right lower extremity. No calf tenderness. 2+pedal pulses bilaterally NEUROLOGICAL: Awake and alert. Motor grossly within normal limits. Decreased sensation on bilateral feet. Normal speech. (Jessika Meza MD R3) A/P Assessment and Plan 61-year-old male with history significant for uncontrolled diabetes. Admitted for right foot cellulitis (Jessika Meza MD R3) Attending Attestation Patient seen and examined. Case reviewed and discussed Agree with plan of care as discussed with me and documented in the resident note. (Milagros Hart MD) Problem List: (1) Cellulitis of right foot Status: Acute Plan: Leukocytosis resolved from yesterday. Patient with x-ray significant for small linear foreign body along plantar lateral aspect near fifth metatarsal. OR today with podiatry for removal of foreign body and probable debridement. Elevated ESR, no x-ray signs of osteomyelitis. -HOWIE pending, depending on results consider consulting vascular surgery * Vancomycin (12/21- * Zosyn (12/21- (2) Electrolyte abnormality Status: Acute Plan: Denies history of CKD. Found to have hyponatremia and hyperkalemia. Improving with IV fluid hydration. Normal saline at 120 cc/hour (3) DM (diabetes mellitus) Status: Chronic Plan: History of uncontrolled diabetes with last reported A1c of 11. -Hold home Levemir dosing -Levemir 20 units BID, will likely need increase -Low-dose sliding scale -Continue home gabapentin (4) CAD (coronary artery disease) Status: Chronic Plan: Significant cardiac history requiring multiple cardiac caths and a CABG. -Continue home Imdur, metoprolol, pravastatin -Hold lisinopril until potassium improves (5) Nutrition, metabolism, and development symptoms Status: Acute Plan: Diet: Diabetic diet Fluids: NS at 120 Electrolytes: See plan above DVT prophylaxis: SCDs on left leg, Lovenox status post procedure GI prophylaxis: None indicated (Jessika Meza MD R3) Jessika Meza MD R3 Dec 22, 2016 14:36 Milagros Hart MD Dec 22, 2016 15:36
[2016-12-22] MEDS ORDERED: BUPIVACAINE HCL PF 0.25% 30 ML VIAL ONE (16:25)
[2016-12-22] MEDS ORDERED: ACETAMINOPHEN 1000 MG/100 ML VIAL IV ONE (16:51)
[2016-12-22] MEDS ORDERED: MIDAZOLAM HCL 2 MG/2 ML VIAL ONE (16:51)
[2016-12-22] MEDS ORDERED: FAMOTIDINE 20 MG/2 ML VIAL ONE (16:52)
[2016-12-22] MEDS ORDERED: fentaNYL CITRATE 250 MCG/5 ML AMP ONE ×2 (16:52→18:12)
[2016-12-22] MEDS ORDERED: DO NOT ADM ANY ANTICOAGULANT DRUGS PRN (18:05)
--- NOTE | 2016-12-22 18:12 | HHI.PR ---
Immediate Post Op Note Procedure Date: Dec 22, 2016 Pre Op Diagnosis: Right DM foot infection with ulcer Post Op Diagnosis: same Surgeon: Ja Zurita [employer] Worker(s): Sinan duong Procedure: Right foot incision drainage deep expansile Findings: Flouro intra-op did not show foreign body Complications: None Specimen(s) removed: Deep wound cx right foot Estimated blood loss: 50mL Anesthesia: General, Local Drains: Other Fluids: see anethesia Patient to: Other Patient Condition: Fair Implant/Devices: SEE IMPLANT LOG (if applicable) Date/Time of Procedure: SEE SURGICAL CARE RECORD Ja Zurita DPM Dec 22, 2016 18:12
--- NOTE | 2016-12-22 18:32 | RADRPT ---
EXAM DATE/TIME: 12/22/2016 17:32 [facility] COMPARISON: FOOT RIGHT COMPLETE ([id number]), December 21, 2016, 11:29. INDICATIONS : OR procedure, possible foreign body. MEDICAL HISTORY : None. SURGICAL HISTORY : None. ENCOUNTER: Subsequent ACUITY: 2 days PAIN SCORE: Non-responsive. LOCATION: Right distal foot, fifth metatarsal FINDINGS: AP and lateral cone-down views of the fifth metatarsal-phalangeal joint region were obtained and demo nstrate postsurgical changes with apparent surgical wound along the volar soft tissues. The previousl y noted small faint radiopaque foreign body is no longer visualized. No underlying bony abnormality i s noted. CONCLUSION: Post operative study as described. Sinan Machado MD on December 22, 2016 at 18:28 Board Certified Radiologist. This report was verified electronically.
[2016-12-22] MEDS: PRAVASTATIN SOD 20 MG TAB PO SCH (20:10)
[2016-12-22] MEDS: VANCOMYCIN INJ 2,000 MG in SODIUM CHLORID 0.9% 500 ML INJ 500 ML IV SCH (21:13)
[2016-12-23] VITALS (7 sets, daily range): BP systolic 112–130; BP diastolic 56–64; PULSE 69–95; RESP 16–20; TEMP 97–100.2; O2SAT 93–98
[2016-12-23] MEDS: MORPHINE SULFATE 4 MG/ML INJ IV PRN ×2 (01:06→05:39)
[2016-12-23] MEDS: PIPERACIL-TAZO 3.375 GM PREMIX 50 ML IV SCH ×4 (02:31→21:33)
[2016-12-23] MEDS: ACETAMINOPHEN/HYDROcodone 325 MG/10 MG TAB PO PRN ×4 (04:27→21:32)
[2016-12-23] MEDS: ISOSORBIDE MONONITRATE 60 MG TAB PO SCH (06:01)
[2016-12-23] MEDS: INSULIN ASPART SUPPLEMENTAL SCALE SQ SCH ×4 (06:02→21:45)
[2016-12-23 07:15] LABS: AUTOMATED NEUTROPHIL # 7.2 TH/MM3 (1.8-7.7); BASOPHIL # 0.1 TH/MM3 (0-0.2); BASOPHIL % 0.6 % (0.0-2.0); EOSINOPHIL # 0.1 TH/MM3 (0-0.4); EOSINOPHIL % 1.2 % (0.0-4.0); HEMATOCRIT 33.2 % (39.0-51.0); HEMO FLAGS DIFF FINAL; LYMPH % 7.7 % (9.0-44.0); LYMPHOCYTE # 0.7 TH/MM3 (1.0-4.8); MEAN CELL VOLUME 81.5 FL (80.0-100.0); MEAN CORPUSCULAR HEMOGLOBIN 26.8 PG (27.0-34.0); MEAN CORPUSCULAR HGB CONC 32.8 % (32.0-36.0); NEUT % 82.5 % (16.0-70.0); PLATELET COUNT 185 TH/MM3 (150-450); RED BLOOD COUNT 4.07 MIL/MM3 (4.50-5.90); RED CELL DISTRIBUTION WIDTH 17.3 % (11.6-17.2); WHITE BLOOD COUNT 8.7 TH/MM3 (4.0-11.0)
[2016-12-23 07:40] LABS: BICARBONATE 22.7 MEQ/L (21.0-32.0)
--- NOTE | 2016-12-23 08:34 | EKG ---
Date Performed: 12/21/2016 Time Performed: 17:12:23 PTAGE: 61 years EKG: Sinus rhythm WITH FIRST DEGREE AV BLOCK MARKED LEFT AXIS DEVIATION MODERATE INTRAVENTRICULAR CONDUCTION DELAY ABN ORMAL ECG NO PREVIOUS TRACING DOCTOR: Demarcus Ortega Interpretating Date/Time 12/23/2016 08:33:22
[2016-12-23] MEDS: SODIUM CHLORIDE 0.9% FLUSH 10 ML FLUSH IV FLUSH SCH ×2 (08:43→21:32)
[2016-12-23] MEDS: SODIUM CHLOR 0.9% 1000 ML INJ 1,000 ML IV SCH (08:43)
[2016-12-23] MEDS: DOCUSATE SODIUM 50 MG/SENNA 8.6 MG TAB PO SCH ×2 (08:46→21:31)
[2016-12-23] MEDS: GABAPENTIN 400 MG CAP PO SCH ×2 (08:46→21:31)
[2016-12-23] MEDS: ASPIRIN 81 MG CHEW TAB PO SCH (08:46)
[2016-12-23] MEDS: METOPROLOL SUCCINATE 25 MG EXTENDED RELEASE TAB PO SCH (08:46)
[2016-12-23] MEDS: INSULIN DETEMIR 100 UNITS/ML VIAL SQ SCH ×2 (08:50→21:46)
--- NOTE | 2016-12-23 10:01 | HHI.FPPN ---
Subjective Remarks Acute events overnight. Afebrile, vital signs stable. Patient complains of pain in his right foot, improving slowly. Currently on oxygen, does not use at home. Denies any shortness of breath or chest pain. (Jessika Meza MD R3) Objective Vitals Vital Signs Date Time Temp Pulse Resp B/P Pulse Ox O2 Delivery O2 Flow Rate FiO2 12/23/16 08:00 99.2 85 16 113/63 93 12/23/16 04:00 98.4 74 18 127/64 98 12/23/16 00:00 97.0 69 20 113/58 94 12/22/16 22:00 94 Nasal Cannula 3.00 12/22/16 20:00 72 12/22/16 20:00 97.2 78 18 120/61 92 12/22/16 18:45 71 27 121/64 27 Nasal Cannula 3 12/22/16 18:30 68 13 120/62 94 Nasal Cannula 3 12/22/16 18:15 74 22 124/62 95 Nasal Cannula 3 12/22/16 18:06 99.4 74 16 123/68 95 Nasal Cannula 3 12/22/16 16:00 100.5 81 17 121/73 94 12/22/16 12:00 96.6 70 16 115/62 93 I/O 12/22/16 12/22/16 12/22/16 12/23/16 12/23/16 12/23/16 07:00 15:00 23:00 07:00 15:00 23:00 Intake Total 1274 ml 1000 ml 940 ml 240 ml 1784 ml Output Total 450 ml 450 ml 125 ml Balance 1274 ml 1000 ml 490 ml -210 ml 1659 ml Intake Oral 240 ml 0 ml 240 ml 240 ml IV Total 1034 ml 1000 ml 1784 ml Other 700 ml Output Urine Total 400 ml 450 ml 125 ml Estimated Blood Loss 50 ml # Voids 2 4 # Bowel Movements 0 0 0 0 (Jessika Meza MD R3) Result Diagram: 12/23/1646 12/23/16 0546 Objective Remarks GENERAL: This is a well-nourished, well-developed patient, in no apparent distress. Resting comfortably in bed. SKIN: Right foot status post I&D and exploration of wound, dressed. Dressing clean/dry/intact. EYES: Pupils equal round and reactive. Extraocular motions intact. Very mild scleral icterus. No injection or drainage. ENT: Nose without bleeding, purulent drainage. Throat without erythema, tonsillar hypertrophy or exudate. Airway patent. NECK: Trachea midline. No lymphadenopathy. CARDIOVASCULAR: Regular rate and rhythm without murmurs, gallops, or rubs. RESPIRATORY: Clear to auscultation. Breath sounds equal bilaterally. No wheezes , rales, or rhonchi. GASTROINTESTINAL: Abdomen soft, non-tender, nondistended. No guarding. MUSCULOSKELETAL: Extremities without clubbing, cyanosis. No calf tenderness. 2+ pedal pulses bilaterally NEUROLOGICAL: Awake and alert. Motor grossly within normal limits. Decreased sensation on bilateral feet. Normal speech. (Jessika Meza MD R3) A/P Assessment and Plan 61-year-old male with history significant for uncontrolled diabetes. Admitted for right foot cellulitis (Jessika Meza MD R3) Attending Attestation Patient seen and examined Case reviewed and discussed Agree with plan of care as discussed with me and documented in the resident note. (Milagros Hart MD) Problem List: (1) Cellulitis of right foot Status: Acute Plan: Leukocytosis resolved. Afebrile. Patient with x-ray significant for small linear foreign body along plantar lateral aspect near fifth metatarsal. OR on 12/22 for I&D and wound exploration. Elevated ESR, no x-ray signs of osteomyelitis. Soft tissue cellulitis per podiatry note Continue antibiotics, will narrow once wound culture returns Wound culture pending, gram-positive cocci in pairs HOWIE equivocal however stenotic vessels * Vancomycin (12/21- * Zosyn (12/21- (2) Electrolyte abnormality Status: Resolved Plan: Denies history of CKD. Found to have hyponatremia and hyperkalemia. Improved. DC IV fluids (3) DM (diabetes mellitus) Status: Chronic Plan: History of uncontrolled diabetes with last reported A1c of 11. -Hold home Levemir dosing -Levemir 20 units BID -Low-dose sliding scale -Continue home gabapentin (4) CAD (coronary artery disease) Status: Chronic Plan: Significant cardiac history requiring multiple cardiac caths and a CABG. -Continue home Imdur, metoprolol, pravastatin -Hold lisinopril until potassium improves (5) Nutrition, metabolism, and development symptoms Status: Acute Plan: Diet: Diabetic diet Fluids: Hep-Lock IV Electrolytes: Continue to monitor DVT prophylaxis: SCDs on left leg, heparin GI prophylaxis: None indicated (Jessika Meza MD R3) Jessika Meza MD R3 Dec 23, 2016 10:01 Milagros Hart MD Dec 26, 2016 14:47
[2016-12-23] MEDS: HEPARIN SODIUM - SQ 10,000 UNITS/ML VIAL SQ SCH ×2 (14:58→21:33)
--- NOTE | 2016-12-23 15:59 | PD.POD ---
Subjective Pain score: 7 Remarks Hard time sleeping, pain is some what controlled, mild fever Past Med/Surg/Social History Social History Smoking Status: Never Smoker Objective Vital Signs Vital Signs Date Time Temp Pulse Resp B/P Pulse Ox O2 Delivery O2 Flow Rate FiO2 12/23/16 12:00 98.3 73 16 117/56 94 12/23/16 08:00 99.2 85 16 113/63 93 12/23/16 07:52 77 12/23/16 04:00 98.4 74 18 127/64 98 12/23/16 00:00 97.0 69 20 113/58 94 12/22/16 22:00 94 Nasal Cannula 3.00 12/22/16 20:00 72 12/22/16 20:00 97.2 78 18 120/61 92 12/22/16 18:45 71 27 121/64 27 Nasal Cannula 3 12/22/16 18:30 68 13 120/62 94 Nasal Cannula 3 12/22/16 18:15 74 22 124/62 95 Nasal Cannula 3 12/22/16 18:06 99.4 74 16 123/68 95 Nasal Cannula 3 12/22/16 16:00 100.5 81 17 121/73 94 Coded Allergies: No Known Allergies (Unverified , 12/19/16) Medications and IVs Administered Medications Medications (Trade) Dose Ordered Sig/Jeanine Route PRN Reason Start Time Stop Time Status Last Admin Dose Admin Pravastatin Sodium (Pravachol) 20 mg HS PO 12/21/16 21:00 12/22/16 20:10 Sodium Chloride (NS Flush) 2 ml BID IV FLUSH 12/21/16 21:00 12/23/16 08:43 Senna/Docusate Sodium (Casandra-Colace) 1 tab BID PO 12/21/16 21:00 12/23/16 08:46 Gabapentin (Neurontin) 400 mg DAILY PO 12/22/16 09:00 12/23/16 08:46 Gabapentin (Neurontin) 800 mg HS PO 12/21/16 21:00 12/22/16 20:10 Insulin Detemir (Levemir Inj) 20 units BID SQ 12/21/16 21:00 12/23/16 08:50 Acetaminophen/ Hydrocodone Bitart ([place] 10-325 Mg) 1 tab Q4H PRN PO PAIN SCALE 6 TO 10 12/21/16 14:15 12/23/16 08:51 Morphine Sulfate (Morphine Inj) 4 mg Q3H PRN IV BREAKTHROUGH PAIN 12/21/16 14:15 12/23/16 05:39 Isosorbide Mononitrate (Imdur) 60 mg DAILY@07 PO 12/22/16 07:00 12/23/16 06:01 Metoprolol Succinate 25 mg 25 mg DAILY PO 12/22/16 09:00 12/23/16 08:46 Piperacillin Sod/ Tazobactam Sod 50 ml @ 100 mls/hr Q6H IV 12/21/16 20:00 12/23/16 14:07 Vancomycin HCl/ Sodium Chloride (Vancomycin Inj/ NS 500 ml Inj) 520 ml @ 250 mls/hr Q24H IV 12/21/16 21:00 12/22/16 21:13 Aspirin (Aspirin Chew) 81 mg DAILY PO 12/21/16 20:45 12/23/16 08:46 Heparin Sodium (Porcine) (Heparin Inj) 5,000 units Q8HR SQ 12/23/16 14:00 12/23/16 14:58 Other Results Laboratory Tests Test 12/22/16 12/23/16 03:31 05:46 White Blood Count 10.1 TH/MM3 8.7 TH/MM3 Red Blood Count 4.39 MIL/MM3 4.07 MIL/MM3 Hemoglobin 11.9 GM/DL 10.9 GM/DL Hematocrit 35.9 % 33.2 % Mean Corpuscular Volume 81.7 FL 81.5 FL Mean Corpuscular Hemoglobin 27.1 PG 26.8 PG Mean Corpuscular Hemoglobin 33.1 % 32.8 % Concent Red Cell Distribution Width 17.3 % 17.3 % Platelet Count 181 TH/MM3 185 TH/MM3 Mean Platelet Volume 7.0 FL 7.1 FL Neutrophils (%) (Auto) 84.2 % 82.5 % Lymphocytes (%) (Auto) 7.8 % 7.7 % Monocytes (%) (Auto) 6.3 % 8.0 % Eosinophils (%) (Auto) 1.2 % 1.2 % Basophils (%) (Auto) 0.5 % 0.6 % Neutrophils # (Auto) 8.5 TH/MM3 7.2 TH/MM3 Lymphocytes # (Auto) 0.8 TH/MM3 0.7 TH/MM3 Monocytes # (Auto) 0.6 TH/MM3 0.7 TH/MM3 Eosinophils # (Auto) 0.1 TH/MM3 0.1 TH/MM3 Basophils # (Auto) 0.1 TH/MM3 0.1 TH/MM3 CBC Comment DIFF FINAL DIFF FINAL Differential Comment Laboratory Tests Test 12/21/16 12/21/16 12/21/16 12/22/16 17:31 19:05 22:36 03:31 Sodium Level 134 MEQ/L 131 MEQ/L 130 MEQ/L 135 MEQ/L Potassium Level 4.9 MEQ/L 5.4 MEQ/L 5.2 MEQ/L 5.0 MEQ/L Chloride Level 101 MEQ/L 101 MEQ/L 101 MEQ/L 104 MEQ/L Carbon Dioxide Level 25.7 MEQ/L 22.9 MEQ/L 23.6 MEQ/L 24.6 MEQ/L Anion Gap 7 MEQ/L 7 MEQ/L 5 MEQ/L 6 MEQ/L Blood Urea Nitrogen 29 MG/DL 31 MG/DL 31 MG/DL 28 MG/DL Creatinine 1.35 MG/DL 1.35 MG/DL 1.27 MG/DL 1.23 MG/DL Estimat Glomerular Filtration 54 ML/MIN 54 ML/MIN 57 ML/MIN 60 ML/MIN Rate Random Glucose 183 MG/DL 225 MG/DL 206 MG/DL 139 MG/DL Calcium Level 8.2 MG/DL 7.8 MG/DL 7.6 MG/DL 8.0 MG/DL Lactic Acid Level 0.9 mmol/L Total Bilirubin 0.7 MG/DL Aspartate Amino Transf 18 U/L (AST/SGOT) Alanine Aminotransferase 28 U/L (ALT/SGPT) Alkaline Phosphatase 84 U/L Total Protein 7.0 GM/DL Albumin 2.5 GM/DL Test 12/23/16 05:46 Sodium Level 133 MEQ/L Potassium Level 5.0 MEQ/L Chloride Level 103 MEQ/L Carbon Dioxide Level 22.7 MEQ/L Anion Gap 7 MEQ/L Blood Urea Nitrogen 20 MG/DL Creatinine 1.02 MG/DL Estimat Glomerular Filtration 74 ML/MIN Rate Random Glucose 150 MG/DL Calcium Level 7.9 MG/DL Microbiology Date/Time Procedure Status Source Growth 12/21/16 11:00 Aerobic Blood Culture - Preliminary Resulted Blood Peripheral NO GROWTH IN 2 DAYS 12/21/16 11:00 Anaerobic Blood Culture - Preliminary Resulted Blood Peripheral NO GROWTH IN 2 DAYS 12/21/16 11:25 Aerobic Blood Culture - Preliminary Resulted Blood Peripheral NO GROWTH IN 2 DAYS 12/21/16 11:25 Anaerobic Blood Culture - Preliminary Resulted Blood Peripheral NO GROWTH IN 2 DAYS 12/22/16 17:19 Gram Stain - Final Resulted Wound Foot 12/22/16 17:19 Wound Culture - Preliminary Resulted Group B Beta Strep 12/22/16 17:19 Acid Fast Stain Received Wound Foot Pending 12/22/16 17:19 Mycobacterial Culture Received Wound Foot Pending 12/22/16 17:19 Fungal Smear - Final Resulted Wound Foot NO FUNGAL ELEMENTS SEEN. 12/22/16 17:19 Fungal Culture Resulted Wound Foot Pending Physical Exam Remarks Right foot not much improvement in the redness of the foot some edema is down, mild serosanguineous drainage from dorsal and plantar incision, foot remains warm with pulses intact, limited ROm of foot due to pain Assessment & Plan A/P Right foot DM infection, ulcer. SP Incision and drainage 12/22. WBC is trending down, Temp is up 100 as of 4pm per nurse. Reviewed with medicine will Sleep aid, may need repeat Bld cx. Continue ABX IV, will need likely 1-2 weeks until cellulitis has resolved. Will change bandage and remove packing tomorrow. No further surgery is planned at this point, Possible DC in 2-3 days Ja Levi DPM Dec 23, 2016 15:59
[2016-12-23] MEDS ORDERED: PHARMACY ORDERED LAB ONE (20:45)
[2016-12-23] MEDS: PRAVASTATIN SOD 20 MG TAB PO SCH (21:31)
[2016-12-23] MEDS: ZOLPIDEM TARTRATE 10 MG TAB PO PRN (21:32)
[2016-12-23] MEDS: VANCOMYCIN INJ 2,000 MG in SODIUM CHLORID 0.9% 500 ML INJ 500 ML IV SCH (21:33)
[2016-12-24] VITALS (9 sets, daily range): BP systolic 122–137; BP diastolic 57–71; PULSE 73–84; RESP 17–21; TEMP 97.5–99.4; O2SAT 92–97
[2016-12-24] MEDS: PIPERACIL-TAZO 3.375 GM PREMIX 50 ML IV SCH ×3 (02:19→13:43)
[2016-12-24] MEDS: ACETAMINOPHEN/HYDROcodone 325 MG/10 MG TAB PO PRN ×3 (02:19→20:31)
[2016-12-24 05:43] LABS: BASOPHIL % 0.3 % (0.0-2.0); EOSINOPHIL # 0.1 TH/MM3 (0-0.4); EOSINOPHIL % 1.6 % (0.0-4.0); HEMATOCRIT 33.3 % (39.0-51.0); HEMO FLAGS DIFF FINAL; LYMPH % 9.9 % (9.0-44.0); LYMPHOCYTE # 0.9 TH/MM3 (1.0-4.8); MEAN CELL VOLUME 81.9 FL (80.0-100.0); MEAN CORPUSCULAR HEMOGLOBIN 27.1 PG (27.0-34.0); MEAN CORPUSCULAR HGB CONC 33.1 % (32.0-36.0); MONO % 8.9 % (0.0-8.0); NEUT % 79.3 % (16.0-70.0); PLATELET COUNT 191 TH/MM3 (150-450); RED BLOOD COUNT 4.06 MIL/MM3 (4.50-5.90); WHITE BLOOD COUNT 8.8 TH/MM3 (4.0-11.0)
[2016-12-24 05:59] LABS: BICARBONATE 23.7 MEQ/L (21.0-32.0); POTASSIUM 4.5 MEQ/L (3.5-5.1)
[2016-12-24] MEDS: HEPARIN SODIUM - SQ 10,000 UNITS/ML VIAL SQ SCH ×3 (06:14→20:31)
[2016-12-24] MEDS: ISOSORBIDE MONONITRATE 60 MG TAB PO SCH (06:15)
[2016-12-24] MEDS: INSULIN ASPART SUPPLEMENTAL SCALE SQ SCH ×4 (06:16→20:36)
[2016-12-24] MEDS: DOCUSATE SODIUM 50 MG/SENNA 8.6 MG TAB PO SCH ×2 (08:42→20:30)
[2016-12-24] MEDS: SODIUM CHLORIDE 0.9% FLUSH 10 ML FLUSH IV FLUSH SCH ×2 (08:42→20:37)
[2016-12-24] MEDS: METOPROLOL SUCCINATE 25 MG EXTENDED RELEASE TAB PO SCH (08:42)
[2016-12-24] MEDS: GABAPENTIN 400 MG CAP PO SCH ×2 (08:42→20:29)
[2016-12-24] MEDS: ASPIRIN 81 MG CHEW TAB PO SCH (08:42)
[2016-12-24] MEDS: INSULIN DETEMIR 100 UNITS/ML VIAL SQ SCH ×2 (08:44→20:35)
--- NOTE | 2016-12-24 14:04 | HHI.FPPN ---
Subjective Remarks Patient feeling well without concerns or complaints. Foot pain well controlled. Denies any shortness of breath, chest pain, or decreased by mouth intake. Asking when he can go home. (Pedro Marquez MD R2) Objective Vitals Vital Signs Date Time Temp Pulse Resp B/P Pulse Ox O2 Delivery O2 Flow Rate FiO2 12/24/16 12:08 97 Nasal Cannula 2.50 12/24/16 12:00 98.0 83 17 124/57 95 12/24/16 08:40 92 Room Air 12/24/16 08:00 97.5 84 19 133/64 92 12/24/16 07:29 78 12/24/16 04:36 97.8 73 20 125/69 95 12/24/16 00:12 98.3 82 20 137/71 97 12/23/16 20:18 100.1 79 18 112/64 97 12/23/16 16:00 100.2 95 16 130/62 94 I/O 12/23/16 12/23/16 12/23/16 12/24/16 12/24/16 12/24/16 06:59 14:59 22:59 06:59 14:59 22:59 Intake Total 480 ml 2024 ml 450 ml 1027 ml Output Total 850 ml 625 ml Balance -370 ml 1399 ml 450 ml 1027 ml Intake Oral 480 ml 240 ml 450 ml 360 ml IV Total 1784 ml 667 ml Output Urine Total 850 ml 625 ml # Voids 2 2 # Bowel Movements 0 0 (Pedro Marquez MD R2) Result Diagram: 12/24/16 0455 12/24/16 0455 Objective Remarks GENERAL: This is a well-nourished, well-developed patient, in no apparent distress. Resting comfortably in bed. SKIN: Right foot status post I&D and exploration of wound, dressed. Dressing clean/dry/intact. EYES: Pupils equal round and reactive. Extraocular motions intact. Very mild scleral icterus. No injection or drainage. ENT: Nose without bleeding, purulent drainage. Throat without erythema, tonsillar hypertrophy or exudate. Airway patent. NECK: Trachea midline. No lymphadenopathy. CARDIOVASCULAR: Regular rate and rhythm without murmurs, gallops, or rubs. RESPIRATORY: Clear to auscultation. Breath sounds equal bilaterally. No wheezes , rales, or rhonchi. GASTROINTESTINAL: Abdomen soft, non-tender, nondistended. No guarding. MUSCULOSKELETAL: Extremities without clubbing, cyanosis. No calf tenderness. 2+ pedal pulses bilaterally NEUROLOGICAL: Awake and alert. Motor grossly within normal limits. Decreased sensation on bilateral feet. Normal speech. (Pedro Marquez MD R2) A/P Assessment and Plan 61-year-old male with history significant for uncontrolled diabetes. Admitted for right foot cellulitis (Pedro Marquez MD R2) Attending Attestation Patient seen and examined Case reviewed and discussed Agree with plan of care as discussed with me and documented in the resident note. (Milagros Hart MD) Problem List: (1) Cellulitis of right foot Status: Acute Plan: Leukocytosis resolved. Afebrile. Patient with x-ray significant for small linear foreign body along plantar lateral aspect near fifth metatarsal. OR on 12/22 for I&D and wound exploration. Elevated ESR, no x-ray signs of osteomyelitis. Soft tissue cellulitis per podiatry note Continue antibiotics, wound culture showing group B strep, consult infectious disease for transitioning to by mouth antibiotic. Wound culture pending, gram-positive cocci in pairs HOWIE equivocal however stenotic vessels * Vancomycin (12/21- * Zosyn (12/21- (2) Electrolyte abnormality Status: Resolved Plan: Denies history of CKD. Found to have hyponatremia and hyperkalemia. Improved. DC IV fluids (3) DM (diabetes mellitus) Status: Chronic Plan: History of uncontrolled diabetes with last reported A1c of 11. -Hold home Levemir dosing -Levemir 20 units BID -Low-dose sliding scale -Continue home gabapentin (4) CAD (coronary artery disease) Status: Chronic Plan: Significant cardiac history requiring multiple cardiac caths and a CABG. -Continue home Imdur, metoprolol, pravastatin -Hold lisinopril until potassium improves (5) Nutrition, metabolism, and development symptoms Status: Acute Plan: Diet: Diabetic diet Fluids: Hep-Lock IV Electrolytes: Continue to monitor DVT prophylaxis: SCDs on left leg, heparin GI prophylaxis: None indicated (Pedro Marquez MD R2) Pedro Marquez MD R2 Dec 24, 2016 14:04 Milagros Hart MD Dec 26, 2016 14:47
[2016-12-24] MEDS ORDERED: VANCOMYCIN INJ 2,000 MG in SODIUM CHLORID 0.9% 500 ML INJ 500 ML IV SCH (15:00)
--- NOTE | 2016-12-24 15:23 | PD.CONS ---
History of Present Illness Service Infectious disease Consult Requested By Dr Tanner Mcintyre Reason for Consult Evaluate patient with diabetic foot infection, GBS Primary Care Physician Unknown Diagnoses: History of Present Illness Patient seen and examined. Records reviewed. Patient is a 61-year-old male, with diabetes, presented to the hospital complaining of increasing redness on his right foot. Patient developed a blister on the lateral aspect of his right foot around December 19. He has neuropathy and didn't really feel anything when he showed up. He has not been wearing any new footwear, and has been using the same tennis shoes with socks. He has not been doing a lot of walking and actually uses a scooter to move around because he doesn't really walk very well. The blister popped open, and due to the diabetes, the patient went to the emergency room. He was evaluated, and there was no DVT, there was apparently no erythema noted, and the patient was just instructed to keep the area clean and rapid, and he was not given any antibiotics. There was no fever in the emergency room. Patient started feeling pretty bad with development of fever and chills, fatigue, malaise, decreased appetite, and he noted increasing redness on his right foot. He also was having pain and increasing swelling. He presented to the hospital for further evaluation and treatment. He denies any nausea or vomiting or diarrhea prior to admission. There's been no urinary complaints or any respiratory complaint. Patient was seen by podiatry, and they did I&D of an abscess on his right foot. Culture grew strep agalactiae. Patient continues to have low-grade fevers. Renal pain in his right foot. He initially had leukocytosis and that has improved. Blood cultures done on admission are negative so far. Infectious disease consultation requested to evaluate the patient. Review of Systems Constitutional: COMPLAINS OF: Fever, Chills, Change in appetite Eyes: DENIES: Eye pain Ears, nose, mouth, throat: COMPLAINS OF: Throat pain, DENIES: Nasal discharge , Oral lesions, Ear Pain, Sinus Pain Respiratory: COMPLAINS OF: Shortness of breath, DENIES: Cough, Sputum production Cardiovascular: DENIES: Chest pain, Palpitations Gastrointestinal: DENIES: Abdominal pain, Diarrhea, Nausea, Vomiting, Difficulty Swallowing Genitourinary: DENIES: Dysuria Musculoskeletal: COMPLAINS OF: Joint pain, Muscle aches, Joint Swelling Integumentary: DENIES: Rash Neurologic: DENIES: Headache Psychiatric: DENIES: Confusion, Hallucinations Past Family Social History Allergies: Coded Allergies: No Known Allergies (Unverified , 12/19/16) Past Medical History DM with peripheral neuropathy Hypertension Hyperlipidemia Asthma Sleep apnea Obesity CAD: required 4-[address] x2 last episode 2014 Past Surgical History CABG Stents x4-6 Adenoid/tonsill/uvula removal for sleep apnea Active Ordered Medications Tylenol [place] Albuterol Aspirin Dulcolax Neurontin Heparin Hydralazine Insulin Imdur Lactulose MOM Toprol Morphine Zofran Zosyn Pravachol Casandra-colace Senokot Vancomycin Ambien Family History Non-contributory Social History Denies smoking Denies ETOH abuse Denies illicit drug use Physical Exam Vital Signs Vital Signs Date Time Temp Pulse Resp B/P Pulse Ox O2 Delivery O2 Flow Rate FiO2 12/24/16 12:08 97 Nasal Cannula 2.50 12/24/16 12:00 98.0 83 17 124/57 95 12/24/16 08:40 92 Room Air 12/24/16 08:00 97.5 84 19 133/64 92 12/24/16 07:29 78 12/24/16 04:36 97.8 73 20 125/69 95 12/24/16 00:12 98.3 82 20 137/71 97 12/23/16 20:18 100.1 79 18 112/64 97 12/23/16 16:00 100.2 95 16 130/62 94 Physical Exam GENERAL: Patient is an obese, well-developed patient, awake and alert, not in respiratory distress. SKIN: Warm and dry. No generalized rash, no ecchymoses and no evidence of embolic lesions. HEAD: Atraumatic. Normocephalic. No temporal wasting, or tenderness. EYES: [place] conjunctiva. No petechia or hemorrhage. Pupils equal, round and reactive to light. Extraocular movements full and intact. No scleral icterus. No injection or drainage. EARS, NOSE AND THROAT: Nose without bleeding or purulent nasal discharge. No sinus tenderness. Mucous membranes pink and moist. No oral lesions noted. No exudate. No oral thrush. NECK: Trachea midline. Supple and not tender, no meningeal signs CARDIOVASCULAR: Regular rate and rhythm. No murmurs, rubs or gallops heard RESPIRATORY: Clear to auscultation. Breath sounds equal bilaterally. No rales , wheezing or rhonchi ABDOMEN: Soft, non-tender, nondistended. Bowel sounds present and normoactive. No guarding. No rebound. No organomegaly. He has a candidal rash in groin and low abdomen EXTREMITIES: No clubbing, cyanosis. No calf tenderness. Well perfused and warm. No effusions, has good ROM in his joints. RLE - swollen with redness on dorsum of his R foot, and some patches of redness on his distal R leg, swollen , has a 2 inch incision at plantar aspect with intact sutures, with some purulent drainage on the dressing, and it has purplish discoloration aroun incision. It has iodoform packing, ?comes out on dorsal aspect of his R foot, which has a 1/2 inch incision. No odor. NEUROLOGICAL: Awake and alert. Cranial nerves grossly intact. Motor grossly within normal limits. PSYCHIATRIC: Normal affect, calm and cooperative. LINE: No evidence of infection Laboratory Laboratory Tests Test 12/23/16 12/24/16 21:20 04:55 Vancomycin Level Trough 5.3 White Blood Count 8.8 Red Blood Count 4.06 Hemoglobin 11.0 Hematocrit 33.3 Mean Corpuscular Volume 81.9 Mean Corpuscular Hemoglobin 27.1 Mean Corpuscular Hemoglobin 33.1 Concent Red Cell Distribution Width 17.0 Platelet Count 191 Mean Platelet Volume 7.0 Neutrophils (%) (Auto) 79.3 Lymphocytes (%) (Auto) 9.9 Monocytes (%) (Auto) 8.9 Eosinophils (%) (Auto) 1.6 Basophils (%) (Auto) 0.3 Neutrophils # (Auto) 7.0 Lymphocytes # (Auto) 0.9 Monocytes # (Auto) 0.8 Eosinophils # (Auto) 0.1 Basophils # (Auto) 0.0 CBC Comment DIFF FINAL Differential Comment Sodium Level 132 Potassium Level 4.5 Chloride Level 100 Carbon Dioxide Level 23.7 Anion Gap 8 Blood Urea Nitrogen 14 Creatinine 1.09 Estimat Glomerular Filtration 69 Rate Random Glucose 146 Calcium Level 8.3 Date/Time Procedure Status Source Growth 12/22/16 17:19 Gram Stain - Final Complete Wound Foot 12/22/16 17:19 Wound Culture - Final Complete Group B Beta Strep 6/26/17 17:19 Fungal Smear - Final Resulted Wound Foot NO FUNGAL ELEMENTS SEEN. 12/22/16 17:19 Fungal Culture Resulted Wound Foot Pending 12/22/16 17:19 Acid Fast Stain - Final Resulted Wound Foot NO ACID FAST BACILLI SEEN 12/22/16 17:19 Mycobacterial Culture Resulted Wound Foot Pending 12/21/16 11:25 Aerobic Blood Culture - Preliminary Resulted Blood Peripheral NO GROWTH IN 3 DAYS 12/21/16 11:25 Anaerobic Blood Culture - Preliminary Resulted Blood Peripheral NO GROWTH IN 3 DAYS Result Diagram: 12/24/16 0455 12/24/16 0455 Imaging RADIOLOGY STUDIES/FILMS REVIEWED Foot X-Ray 12/22/16 0000 Signed Impressions: Service Date/Time: Thursday, December 22, 2016 17:32 - CONCLUSION: Post operative study as described. Sinan Machado MD Lower Extremity CT 12/21/16 0000 Signed Impressions: Service Date/Time: Wednesday, December 21, 2016 18:39 - CONCLUSION: 1. Focal soft-tissue swelling adjacent to the right 5th metatarsal head suggesting cellulitis. No definite underlying lytic erosive changes are noted. If there is strong clinical concern for acute osteomyelitis, a three-phase bone scan or MRI of the foot with contrast would be more sensitive in this patient. 2. Small Achilles calcaneal spur. 3. No acute fracture or dislocation. 4. No radiopaque foreign body identified. Andre Hernandez MD Assessment and Plan Assessment and Plan IMPRESSION DFI, with an ulcer, and abscess, S/P I and D, C/S GBS - no osteo on imaging studies and intraop Obesity Sleep apnea Fevers post op RECOMMENDATION Change to IV Rocephin Agree with podiatry - he has a severe infection and risk of developing progression of infection is very high - prob 2 weeks IV Abx, maybe be longer depending on his follow-up with podiatry and ID in his hometown Will ask CM to determine how we can arrange for patient to his IV Abx during his road trip, which they will take 2 days to get to [place] Arrange for IV Abx when he gets to his home town I will follow along with you Monitor temps Monitor progress Thank you for this consultation Discussed Condition With Explained plan to patient and Nelly Hayden MD Dec 24, 2016 15:23
[2016-12-24] MEDS: cefTRIAXone INJ 2,000 MG in SODIUM CHLORIDE 0.9% INJ 100 ML IV SCH (16:09)
[2016-12-24] MEDS: MORPHINE SULFATE 4 MG/ML INJ IV PRN (18:13)
--- NOTE | 2016-12-24 18:33 | PD.POD ---
Subjective Pain score: 7 Remarks Better time sleeping, pain is some what controlled, mild fever Past Med/Surg/Social History Social History Smoking Status: Never Smoker Objective Vital Signs Vital Signs Date Time Temp Pulse Resp B/P Pulse Ox O2 Delivery O2 Flow Rate FiO2 12/24/16 17:38 Nasal Cannula 2.00 12/24/16 16:00 99.4 84 17 135/68 94 12/24/16 12:08 97 Nasal Cannula 2.50 12/24/16 12:00 98.0 83 17 124/57 95 12/24/16 08:40 92 Room Air 12/24/16 08:00 97.5 84 19 133/64 92 12/24/16 07:29 78 12/24/16 04:36 97.8 73 20 125/69 95 12/24/16 00:12 98.3 82 20 137/71 97 12/23/16 20:18 100.1 79 18 112/64 97 Coded Allergies: No Known Allergies (Unverified , 12/19/16) Medications and IVs Administered Medications Medications (Trade) Dose Ordered Sig/Jeanine Route PRN Reason Start Time Stop Time Status Last Admin Dose Admin Pravastatin Sodium (Pravachol) 20 mg HS PO 12/21/16 21:00 12/23/16 21:31 Sodium Chloride (NS Flush) 2 ml BID IV FLUSH 12/21/16 21:00 12/24/16 08:42 Senna/Docusate Sodium (Casandra-Colace) 1 tab BID PO 12/21/16 21:00 12/24/16 08:42 Gabapentin (Neurontin) 400 mg DAILY PO 12/22/16 09:00 12/24/16 08:42 Gabapentin (Neurontin) 800 mg HS PO 12/21/16 21:00 12/23/16 21:31 Insulin Detemir (Levemir Inj) 20 units BID SQ 12/21/16 21:00 12/24/16 08:44 Acetaminophen/ Hydrocodone Bitart ([place] 10-325 Mg) 1 tab Q4H PRN PO PAIN SCALE 6 TO 10 12/21/16 14:15 12/24/16 15:19 Morphine Sulfate (Morphine Inj) 4 mg Q3H PRN IV BREAKTHROUGH PAIN 12/21/16 14:15 12/24/16 18:13 Isosorbide Mononitrate (Imdur) 60 mg DAILY@07 PO 12/22/16 07:00 12/24/16 06:15 Metoprolol Succinate (Toprol Xl) 25 mg DAILY PO 12/22/16 09:00 12/24/16 08:42 Aspirin (Aspirin Chew) 81 mg DAILY PO 12/21/16 20:45 12/24/16 08:42 Heparin Sodium (Porcine) (Heparin Inj) 5,000 units Q8HR SQ 12/23/16 14:00 12/24/16 13:43 Zolpidem Tartrate 10 mg 10 mg HS PRN PO INSOMNIA 12/23/16 16:00 12/23/16 21:32 Ceftriaxone Sodium/Sodium Chloride (Rocephin Inj/NS Inj) 100 ml @ 200 mls/hr Q24H IV 12/24/16 16:00 12/24/16 16:09 Other Results Laboratory Tests Test 12/23/16 12/24/16 05:46 04:55 White Blood Count 8.7 TH/MM3 8.8 TH/MM3 Red Blood Count 4.07 MIL/MM3 4.06 MIL/MM3 Hemoglobin 10.9 GM/DL 11.0 GM/DL Hematocrit 33.2 % 33.3 % Mean Corpuscular Volume 81.5 FL 81.9 FL Mean Corpuscular Hemoglobin 26.8 PG 27.1 PG Mean Corpuscular Hemoglobin 32.8 % 33.1 % Concent Red Cell Distribution Width 17.3 % 17.0 % Platelet Count 185 TH/MM3 191 TH/MM3 Mean Platelet Volume 7.1 FL 7.0 FL Neutrophils (%) (Auto) 82.5 % 79.3 % Lymphocytes (%) (Auto) 7.7 % 9.9 % Monocytes (%) (Auto) 8.0 % 8.9 % Eosinophils (%) (Auto) 1.2 % 1.6 % Basophils (%) (Auto) 0.6 % 0.3 % Neutrophils # (Auto) 7.2 TH/MM3 7.0 TH/MM3 Lymphocytes # (Auto) 0.7 TH/MM3 0.9 TH/MM3 Monocytes # (Auto) 0.7 TH/MM3 0.8 TH/MM3 Eosinophils # (Auto) 0.1 TH/MM3 0.1 TH/MM3 Basophils # (Auto) 0.1 TH/MM3 0.0 TH/MM3 CBC Comment DIFF FINAL DIFF FINAL Differential Comment Laboratory Tests Test 12/23/16 12/24/16 05:46 04:55 Sodium Level 133 MEQ/L 132 MEQ/L Potassium Level 5.0 MEQ/L 4.5 MEQ/L Chloride Level 103 MEQ/L 100 MEQ/L Carbon Dioxide Level 22.7 MEQ/L 23.7 MEQ/L Anion Gap 7 MEQ/L 8 MEQ/L Blood Urea Nitrogen 20 MG/DL 14 MG/DL Creatinine 1.02 MG/DL 1.09 MG/DL Estimat Glomerular Filtration 74 ML/MIN 69 ML/MIN Rate Random Glucose 150 MG/DL 146 MG/DL Calcium Level 7.9 MG/DL 8.3 MG/DL Microbiology Date/Time Procedure Status Source Growth 12/22/16 17:19 Gram Stain - Final Complete Wound Foot 12/22/16 17:19 Wound Culture - Final Complete Group B Beta Strep 12/22/16 17:19 Acid Fast Stain - Final Resulted Wound Foot NO ACID FAST BACILLI SEEN 12/22/16 17:19 Mycobacterial Culture Resulted Wound Foot Pending 12/22/16 17:19 Fungal Smear - Final Resulted Wound Foot NO FUNGAL ELEMENTS SEEN. 12/22/16 17:19 Fungal Culture Resulted Wound Foot Pending Physical Exam Remarks Right foot not much improvement in the redness of the foot some edema is down, mild serosanguineous drainage from dorsal and plantar incision, foot remains warm with pulses intact, limited ROm of foot due to pain Assessment & Plan A/P Right foot DM infection, ulcer. SP Incision and drainage 12/22. WBC is trending down, Temp fluctuates. Continue ABX IV, appreciate ID. Packing removed, may need repeat Incision and drainage, will advise tomorrow. Ja Levi DPM Dec 24, 2016 18:33
[2016-12-24] MEDS: PRAVASTATIN SOD 20 MG TAB PO SCH (20:29)
[2016-12-24] MEDS: ZOLPIDEM TARTRATE 10 MG TAB PO PRN (20:30)
--- NOTE | 2016-12-24 22:49 | MP ---
cc: ARSENIO ABRAMS DP DATE OF SURGERY 12/24/16 PREOPERATIVE DIAGNOSIS Right diabetic foot infection with ulceration. POSTOPERATIVE DIAGNOSIS Right diabetic foot infection with ulceration. PROCEDURES PERFORMED Right foot incision and drainage, debridement, fluoroscopic examination for foreign body. FINDINGS Intraoperative fluoroscopy did not show foreign body. COMPLICATIONS None. SPECIMEN Deep wound culture, right foot. ESTIMATED BLOOD LOSS Approximately 50 ml. ANESTHESIA General anesthesia with an ankle block consisting of 0.25% Marcaine plain, approximately 10 cc. JUSTIFICATION FOR PROCEDURE This is a pleasant 61-year-old diabetic male who was walking while on vacation and noticed a blister. The blister became severely edematous. He was admitted due to progressive signs and symptoms of infection. The patient upon initial presentation there was noted to be a foreign body that was seen on x-ray. CT was ordered and there was no obvious foreign body seen. The patient has been receiving IV antibiotics but there continues to be impressive edema, redness and mild streaking to the top of the foot. We devised a plan to move forward with incision and drainage, debridement to debulk the infection and to take deep wound cultures. The patient understood that he made need multiple surgeries, possible leading to bone resection, possible partial foot amputation if this continues to progress. No guarantees were given or implied regarding the outcome. PROCEDURE IN DETAIL Under mild sedation the patient was brought to the operating room, placed on the operative table in the supine position. Following the induction of general anesthesia the patient's right lower extremity was scrubbed, prepped and draped in the usual aseptic fashion. The foot was elevated, exsanguinated. The previously placed mid calf tourniquet was inflated to 250 mmHg. The foot was examined. There was noted to be edema and erythema at the dorsum and plantar of the foot but there was a necrotic ulceration with devitalized tissue beneath the fifth MPJ. An excisional debridement took place of this area measuring approximately 4 cm x 5 cm down to deep fat and fascia. There is noted to be mixed serous fluid with minimal purulence. Deep incision took down to the level of the fifth MPJ in the deep interspace in which there was only serous type fluid. Deep culture was taken at this area. The joint capsule appeared to be intact. There was no tracking up the arch. A linear incision was made over the dorsal aspect of the fifth MPJ. There was noted to be serous and serosanguineous type fluid but no obvious purulence. At this time fluoroscopy was used and there is noted to be no obvious radiopaque foreign body compared to the patient's prior x-rays. The wound was then flushed with normal saline. Upon relieving the tourniquet there was bleeding at the surgery site. The foot was noted to be vascularly intact. The wound was then packed open, loose retention sutures were then placed, a bulky bandage placed. The patient was transferred from OR to PACU with all vital signs stable. We will continue to monitor the patient's foot. I am uncertain at this point if the patient will need more debridement, I will advise within the next 24 to 48 hours. LUCY Harvey/LOLA /6:17 PM /10:38 PM
[2016-12-25] VITALS (8 sets, daily range): BP systolic 111–134; BP diastolic 57–72; PULSE 64–80; RESP 17–21; TEMP 98.1–99.4; O2SAT 92–98
[2016-12-25] MEDS: HEPARIN SODIUM - SQ 10,000 UNITS/ML VIAL SQ SCH ×3 (06:15→21:03)
[2016-12-25] MEDS: ISOSORBIDE MONONITRATE 60 MG TAB PO SCH (06:15)
[2016-12-25] MEDS: INSULIN ASPART SUPPLEMENTAL SCALE SQ SCH ×4 (06:15→21:05)
[2016-12-25] MEDS: ACETAMINOPHEN/HYDROcodone 325 MG/10 MG TAB PO PRN ×4 (06:19→21:03)
--- NOTE | 2016-12-25 08:43 | HHI.FPPN ---
Subjective Remarks No acute events overnight. Afebrile, vital signs stable. Patient denies any subjective fever/chills. Reports pain in his right lower extremity that is relieved with pain medication. Last bowel movement 2 days ago. Denies nausea. (Jessika Meza MD R3) Objective Vitals Vital Signs Date Time Temp Pulse Resp B/P Pulse Ox O2 Delivery O2 Flow Rate FiO2 12/25/16 04:20 99.4 69 20 123/58 97 12/25/16 00:28 98.1 79 20 134/72 98 12/24/16 20:31 79 12/24/16 20:29 98.2 75 21 122/64 97 12/24/16 17:38 Nasal Cannula 2.00 12/24/16 16:00 99.4 84 17 135/68 94 12/24/16 12:08 97 Nasal Cannula 2.50 12/24/16 12:00 98.0 83 17 124/57 95 12/24/16 08:40 92 Room Air I/O 12/24/16 12/24/16 12/24/16 12/25/16 12/25/16 12/25/16 07:00 15:00 23:00 07:00 15:00 23:00 Intake Total 1027 ml 875 ml 813 ml 380 ml Balance 1027 ml 875 ml 813 ml 380 ml Intake Oral 360 ml 875 ml 580 ml 380 ml IV Total 667 ml 233 ml # Voids 2 5 2 2 # Bowel Movements 1 (Jessika Meza MD R3) Result Diagram: 12/24/16 0455 12/24/16 0455 Objective Remarks GENERAL: This is a well-nourished, well-developed patient, in no apparent distress. Resting comfortably in bed. SKIN: Right foot status post I&D and exploration of wound, dressed. Dressing clean/dry/intact. EYES: Pupils equal round and reactive. Extraocular motions intact. Very mild scleral icterus. No injection or drainage. ENT: Nose without bleeding, purulent drainage. Throat without erythema, tonsillar hypertrophy or exudate. Airway patent. NECK: Trachea midline. No lymphadenopathy. CARDIOVASCULAR: Regular rate and rhythm without murmurs, gallops, or rubs. RESPIRATORY: Clear to auscultation. Breath sounds equal bilaterally. No wheezes , rales, or rhonchi. GASTROINTESTINAL: Abdomen soft, non-tender, nondistended. No guarding. MUSCULOSKELETAL: Extremities without clubbing, cyanosis. No calf tenderness. 2+ pedal pulses bilaterally. 1+ pitting edema to the mid chin. NEUROLOGICAL: Awake and alert. Motor grossly within normal limits. Decreased sensation on bilateral feet. Normal speech. (Jessika Meza MD R3) A/P Assessment and Plan 61-year-old male with history significant for uncontrolled diabetes. Admitted for right foot cellulitis Discharge Planning Pending clinical improvement and arrangement of IV antibiotics once patient reaches his hometown (Jessika Meza MD R3) Attending Attestation Patient seen and examined Case reviewed and discussed with Dr. Levi, podiatry Agree with plan of care as discussed with me and documented in the resident note. (Milagros Hart MD) Problem List: (1) Cellulitis of right foot Status: Acute Plan: Leukocytosis resolved. Patient febrile to 100.2 on 12/23. OR on 12/22 for I&D and wound exploration. Elevated ESR, no x-ray signs of osteomyelitis. Soft tissue cellulitis per podiatry note Continue antibiotics, wound culture showing group B strep, consult infectious disease Given concern for persistent and spreading infection, patient will need 2 weeks of IV antibiotics per infectious disease recommendation. DC vancomycin and Zosyn, started Rocephin. Podiatry will evaluate today for possible repeat I&D Wound culture showed group B beta strep HOWIE equivocal however stenotic vessels * Vancomycin (12/21-12/24) * Zosyn (12/21-12/24) (2) Constipation Status: Resolved Plan: Likely secondary to pain medication. Patient started on scheduled Casandra- Colace. Increase bowel regimen when necessary (3) Electrolyte abnormality Status: Resolved Plan: Denies history of CKD. Found to have hyponatremia and hyperkalemia. Improved. DC IV fluids (4) DM (diabetes mellitus) Status: Chronic Plan: History of uncontrolled diabetes with last reported A1c of 11. -Hold home Levemir dosing -Levemir 20 units BID -Low-dose sliding scale -Continue home gabapentin (5) CAD (coronary artery disease) Status: Chronic Plan: Significant cardiac history requiring multiple cardiac caths and a CABG. -Continue home Imdur, metoprolol, pravastatin -Hold lisinopril until potassium improves (6) Nutrition, metabolism, and development symptoms Status: Acute Plan: Diet: Diabetic diet Fluids: Hep-Lock IV Electrolytes: Continue to monitor DVT prophylaxis: SCDs on left leg, heparin GI prophylaxis: None indicated (Jessika Meza MD R3) Jessika Meza MD R3 Dec 25, 2016 08:43 Milagros Hart MD Dec 26, 2016 14:46
[2016-12-25] MEDS: DOCUSATE SODIUM 50 MG/SENNA 8.6 MG TAB PO SCH ×5 (09:00→21:02)
[2016-12-25] MEDS: INSULIN DETEMIR 100 UNITS/ML VIAL SQ SCH ×2 (09:08→21:00)
[2016-12-25] MEDS: GABAPENTIN 400 MG CAP PO SCH ×2 (09:08→21:02)
[2016-12-25] MEDS: METOPROLOL SUCCINATE 25 MG EXTENDED RELEASE TAB PO SCH (09:08)
[2016-12-25] MEDS: ASPIRIN 81 MG CHEW TAB PO SCH (09:08)
[2016-12-25] MEDS: SODIUM CHLORIDE 0.9% FLUSH 10 ML FLUSH IV FLUSH SCH ×2 (09:09→21:03)
[2016-12-25] MEDS: MORPHINE SULFATE 4 MG/ML INJ IV PRN (09:18)
--- NOTE | 2016-12-25 10:55 | HHI.PR ---
Addendum to Inpatient Note Addendum Reason: Additional Documentation Additional Information Family medicine service note: 61-year-old male with diabetic foot infection status post I&D with podiatry currently on Rocephin, previously treated with Vanc/Zosyn remains in the hospital for IV antibiotic treatment. After his procedure, he had low-grade fevers and infectious disease was consulted. ID recommends minimum 2 weeks IV antibiotics which will need to be coordinated blunts the patient goes home. At this time he may undergo additional I&D, depending on clinical status and signs/ symptoms of infection. (Jessika Meza MD R3) Jessika Meza MD R3 Dec 25, 2016 10:55 Milagros Hart MD Dec 26, 2016 14:45
[2016-12-25 11:50] LABS: BASOPHIL % 0.4 % (0.0-2.0); EOSINOPHIL # 0.2 TH/MM3 (0-0.4); HEMATOCRIT 34.8 % (39.0-51.0); HEMO FLAGS DIFF FINAL; LYMPH % 11.3 % (9.0-44.0); MEAN CELL VOLUME 82.8 FL (80.0-100.0); MEAN CORPUSCULAR HGB CONC 31.4 % (32.0-36.0); MONO % 7.2 % (0.0-8.0); NEUT % 79.1 % (16.0-70.0); PLATELET COUNT 226 TH/MM3 (150-450); RED CELL DISTRIBUTION WIDTH 16.6 % (11.6-17.2); WHITE BLOOD COUNT 8.8 TH/MM3 (4.0-11.0)
[2016-12-25 12:31] LABS: BICARBONATE 25.4 MEQ/L (21.0-32.0); POTASSIUM 4.8 MEQ/L (3.5-5.1)
--- NOTE | 2016-12-25 12:57 | HHI.IDPN ---
Subjective Subjective Remarks Patient is a 61-year-old male, with diabetes, presented to the hospital complaining of increasing redness on his right foot. Patient developed a blister on the lateral aspect of his right foot around December 19. He has neuropathy and didn't really feel anything when he showed up. He has not been wearing any new footwear, and has been using the same tennis shoes with socks. He has not been doing a lot of walking and actually uses a scooter to move around because he doesn't really walk very well. The blister popped open, and due to the diabetes, the patient went to the emergency room. He was evaluated, and there was no DVT, there was apparently no erythema noted, and the patient was just instructed to keep the area clean and rapid, and he was not given any antibiotics. There was no fever in the emergency room. Patient started feeling pretty bad with development of fever and chills, fatigue, malaise, decreased appetite, and he noted increasing redness on his right foot. He also was having pain and increasing swelling. He presented to the hospital for further evaluation and treatment. He denies any nausea or vomiting or diarrhea prior to admission. There's been no urinary complaints or any respiratory complaint. Patient was seen by podiatry, and they did I&D of an abscess on his right foot. Culture grew strep agalactiae. Notes reviewed Temps 99+ overnight Pain slightly better Podiatry notes reviewed No other complaint Antibiotics Rocephin Lines PIV Past Medical History DM with peripheral neuropathy Hypertension Hyperlipidemia Asthma Sleep apnea Obesity CAD: required 4-6 stents and CABG MA x2 last episode 2014 Past Surgical History CABG Stents x4-6 Adenoid/tonsill/uvula removal for sleep apnea Allergies: Coded Allergies: No Known Allergies (Unverified , 12/19/16) Objective . Vital Signs Date Time Temp Pulse Resp B/P Pulse Ox O2 Delivery O2 Flow Rate FiO2 12/25/16 12:00 98.2 70 19 117/59 94 12/25/16 11:22 94 21 12/25/16 08:00 99.0 80 18 111/62 93 12/25/16 07:45 Room Air 12/25/16 04:20 99.4 69 20 123/58 97 12/25/16 00:28 98.1 79 20 134/72 98 12/24/16 20:31 79 12/24/16 20:29 98.2 75 21 122/64 97 12/24/16 17:38 Nasal Cannula 2.00 12/24/16 16:00 99.4 84 17 135/68 94 12/24/16 12/24/16 12/25/16 15:00 23:00 07:00 Intake Total 875 ml 813 ml 380 ml Balance 875 ml 813 ml 380 ml Intake Oral 875 ml 580 ml 380 ml IV Total 233 ml # Voids 5 2 2 # Bowel Movements 1 . Laboratory Tests Test 12/24/16 12/25/16 04:55 10:57 White Blood Count 8.8 TH/MM3 8.8 TH/MM3 Red Blood Count 4.06 MIL/MM3 4.20 MIL/MM3 Hemoglobin 11.0 GM/DL 10.9 GM/DL Hematocrit 33.3 % 34.8 % Mean Corpuscular Volume 81.9 FL 82.8 FL Mean Corpuscular Hemoglobin 27.1 PG 26.0 PG Mean Corpuscular Hemoglobin 33.1 % 31.4 % Concent Red Cell Distribution Width 17.0 % 16.6 % Platelet Count 191 TH/MM3 226 TH/MM3 Mean Platelet Volume 7.0 FL 7.1 FL Neutrophils (%) (Auto) 79.3 % 79.1 % Lymphocytes (%) (Auto) 9.9 % 11.3 % Monocytes (%) (Auto) 8.9 % 7.2 % Eosinophils (%) (Auto) 1.6 % 2.0 % Basophils (%) (Auto) 0.3 % 0.4 % Neutrophils # (Auto) 7.0 TH/MM3 7.0 TH/MM3 Lymphocytes # (Auto) 0.9 TH/MM3 1.0 TH/MM3 Monocytes # (Auto) 0.8 TH/MM3 0.6 TH/MM3 Eosinophils # (Auto) 0.1 TH/MM3 0.2 TH/MM3 Basophils # (Auto) 0.0 TH/MM3 0.0 TH/MM3 CBC Comment DIFF FINAL DIFF FINAL Differential Comment Laboratory Tests Test 12/24/16 12/25/16 04:55 10:57 Sodium Level 132 MEQ/L 129 MEQ/L Potassium Level 4.5 MEQ/L 4.8 MEQ/L Chloride Level 100 MEQ/L 96 MEQ/L Carbon Dioxide Level 23.7 MEQ/L 25.4 MEQ/L Anion Gap 8 MEQ/L 8 MEQ/L Blood Urea Nitrogen 14 MG/DL 17 MG/DL Creatinine 1.09 MG/DL 1.06 MG/DL Estimat Glomerular Filtration 69 ML/MIN 71 ML/MIN Rate Random Glucose 146 MG/DL 222 MG/DL Calcium Level 8.3 MG/DL 8.9 MG/DL Microbiology Date/Time Procedure Status Source Growth 12/22/16 17:19 Gram Stain - Final Complete Wound Foot 12/22/16 17:19 Wound Culture - Final Complete Group B Beta Strep 12/22/16 17:19 Acid Fast Stain - Final Resulted Wound Foot NO ACID FAST BACILLI SEEN 12/22/16 17:19 Mycobacterial Culture Resulted Wound Foot Pending 12/22/16 17:19 Fungal Smear - Final Resulted Wound Foot NO FUNGAL ELEMENTS SEEN. 12/22/16 17:19 Fungal Culture Resulted Wound Foot Pending Imaging Foot X-Ray 12/22/16 0000 Signed Impressions: Service Date/Time: Thursday, December 22, 2016 17:32 - CONCLUSION: Post operative study as described. Sinan Machado MD Lower Extremity CT 12/21/16 0000 Signed Impressions: Service Date/Time: Wednesday, December 21, 2016 18:39 - CONCLUSION: 1. Focal soft-tissue swelling adjacent to the right 5th metatarsal head suggesting cellulitis. No definite underlying lytic erosive changes are noted. If there is strong clinical concern for acute osteomyelitis, a three-phase bone scan or MRI of the foot with contrast would be more sensitive in this patient. 2. Small Achilles calcaneal spur. 3. No acute fracture or dislocation. 4. No radiopaque foreign body identified. Andre Hernandez MD Physical Exam GENERAL: awake and alert, not in respiratory distress. SKIN: Warm and dry. No generalized rash, no ecchymoses and no evidence of embolic lesions. HEAD: Atraumatic. Normocephalic. No temporal wasting, or tenderness. EYES: [place] conjunctiva. No petechia or hemorrhage. Pupils equal, round and reactive to light. Extraocular movements full and intact. No scleral icterus. No injection or drainage. EARS, NOSE AND THROAT: Nose without bleeding or purulent nasal discharge. No sinus tenderness. Mucous membranes pink and moist. No oral lesions noted. No exudate. No oral thrush. NECK: Trachea midline. Supple and not tender, no meningeal signs CARDIOVASCULAR: Regular rate and rhythm. No murmurs, rubs or gallops heard RESPIRATORY: Clear to auscultation. Breath sounds equal bilaterally. No rales , wheezing or rhonchi ABDOMEN: Soft, non-tender, nondistended. Bowel sounds present and normoactive. No guarding. No rebound. No organomegaly. He has a candidal rash in groin and low abdomen EXTREMITIES: No clubbing, cyanosis. No calf tenderness. Well perfused and warm. No effusions, has good ROM in his joints. RLE - swollen with dry dressing. Erythema on his R leg looks better. No odor. NEUROLOGICAL: Non-focal PSYCHIATRIC: Normal affect, calm and cooperative. LINE: No evidence of infection Assessment & Plan Remarks IMPRESSION DFI, with an ulcer, and abscess, S/P I and D, C/S GBS - no osteo on imaging studies and intraop Obesity Sleep apnea Fevers post op, better RECOMMENDATION Continue Rocephin to cover the GBS Podiatry to evaluate today if repeat debridement needed If no further OR, will ask CM on how to arrange for patient to get his IV Abx when he gets back to his home in [place] - I had discussed this with patient and yesterday - they will be driving back home and they take 2 [address] of [address] to get back home Will ask CM to determine how we can arrange for patient to his IV Abx during his road trip, which they will take 2 days to get to [place] Arrange for IV Abx when he gets to his home town Monitor progress Explained plan to the patient Nelly Hayden MD Dec 25, 2016 12:57
[2016-12-25] MEDS ORDERED: CEFT2INJ IM (13:04)
[2016-12-25] MEDS ORDERED: CEFT2INJ2 IV (13:10)
[2016-12-25] MEDS: cefTRIAXone INJ 2,000 MG in SODIUM CHLORIDE 0.9% INJ 100 ML IV SCH (16:47)
--- NOTE | 2016-12-25 17:18 | PD.POD ---
Subjective Pain score: 7 Remarks Better time sleeping, pain is improved, [facility] to go [facility] Past Med/Surg/Social History Social History Smoking Status: Never Smoker Objective Vital Signs Vital Signs Date Time Temp Pulse Resp B/P Pulse Ox O2 Delivery O2 Flow Rate FiO2 12/25/16 16:00 98.2 73 17 119/64 92 12/25/16 12:00 98.2 70 19 117/59 94 12/25/16 11:22 94 21 12/25/16 08:00 99.0 80 18 111/62 93 12/25/16 07:45 Room Air 12/25/16 04:20 99.4 69 20 123/58 97 12/25/16 00:28 98.1 79 20 134/72 98 12/24/16 20:31 79 12/24/16 20:29 98.2 75 21 122/64 97 12/24/16 17:38 Nasal Cannula 2.00 Coded Allergies: No Known Allergies (Unverified , 12/19/16) Medications and IVs Administered Medications Medications (Trade) Dose Ordered Sig/Jeanine Route PRN Reason Start Time Stop Time Status Last Admin Dose Admin Pravastatin Sodium (Pravachol) 20 mg HS PO 12/21/16 21:00 12/24/16 20:29 Sodium Chloride (NS Flush) 2 ml BID IV FLUSH 12/21/16 21:00 12/25/16 09:09 Senna/Docusate Sodium (Casandra-Colace) 1 tab BID PO 12/21/16 21:00 12/25/16 09:08 Gabapentin (Neurontin) 400 mg DAILY PO 12/22/16 09:00 12/25/16 09:08 Gabapentin (Neurontin) 800 mg HS PO 12/21/16 21:00 12/24/16 20:29 Insulin Detemir (Levemir Inj) 20 units BID SQ 12/21/16 21:00 12/25/16 09:08 Acetaminophen/ Hydrocodone Bitart ([place] 10-325 Mg) 1 tab Q4H PRN PO PAIN SCALE 6 TO 10 12/21/16 14:15 12/25/16 16:46 Morphine Sulfate (Morphine Inj) 4 mg Q3H PRN IV BREAKTHROUGH PAIN 12/21/16 14:15 12/25/16 09:18 Isosorbide Mononitrate (Imdur) 60 mg DAILY@07 PO 12/22/16 07:00 12/25/16 06:15 Metoprolol Succinate (Toprol Xl) 25 mg DAILY PO 12/22/16 09:00 12/25/16 09:08 Aspirin (Aspirin Chew) 81 mg DAILY PO 12/21/16 20:45 12/25/16 09:08 Heparin Sodium (Porcine) (Heparin Inj) 5,000 units Q8HR SQ 12/23/16 14:00 12/25/16 12:16 Zolpidem Tartrate 10 mg 10 mg HS PRN PO INSOMNIA 12/23/16 16:00 12/24/16 20:30 Ceftriaxone Sodium/Sodium Chloride (Rocephin Inj/NS Inj) 100 ml @ 200 mls/hr Q24H IV 12/24/16 16:00 12/25/16 16:47 Senna/Docusate Sodium (Casandra-Colace) 2 tab BID PO 12/25/16 09:00 12/25/16 09:17 Other Results Laboratory Tests Test 12/24/16 12/25/16 04:55 10:57 White Blood Count 8.8 TH/MM3 8.8 TH/MM3 Red Blood Count 4.06 MIL/MM3 4.20 MIL/MM3 Hemoglobin 11.0 GM/DL 10.9 GM/DL Hematocrit 33.3 % 34.8 % Mean Corpuscular Volume 81.9 FL 82.8 FL Mean Corpuscular Hemoglobin 27.1 PG 26.0 PG Mean Corpuscular Hemoglobin 33.1 % 31.4 % Concent Red Cell Distribution Width 17.0 % 16.6 % Platelet Count 191 TH/MM3 226 TH/MM3 Mean Platelet Volume 7.0 FL 7.1 FL Neutrophils (%) (Auto) 79.3 % 79.1 % Lymphocytes (%) (Auto) 9.9 % 11.3 % Monocytes (%) (Auto) 8.9 % 7.2 % Eosinophils (%) (Auto) 1.6 % 2.0 % Basophils (%) (Auto) 0.3 % 0.4 % Neutrophils # (Auto) 7.0 TH/MM3 7.0 TH/MM3 Lymphocytes # (Auto) 0.9 TH/MM3 1.0 TH/MM3 Monocytes # (Auto) 0.8 TH/MM3 0.6 TH/MM3 Eosinophils # (Auto) 0.1 TH/MM3 0.2 TH/MM3 Basophils # (Auto) 0.0 TH/MM3 0.0 TH/MM3 CBC Comment DIFF FINAL DIFF FINAL Differential Comment Laboratory Tests Test 12/24/16 12/25/16 04:55 10:57 Sodium Level 132 MEQ/L 129 MEQ/L Potassium Level 4.5 MEQ/L 4.8 MEQ/L Chloride Level 100 MEQ/L 96 MEQ/L Carbon Dioxide Level 23.7 MEQ/L 25.4 MEQ/L Anion Gap 8 MEQ/L 8 MEQ/L Blood Urea Nitrogen 14 MG/DL 17 MG/DL Creatinine 1.09 MG/DL 1.06 MG/DL Estimat Glomerular Filtration 69 ML/MIN 71 ML/MIN Rate Random Glucose 146 MG/DL 222 MG/DL Calcium Level 8.3 MG/DL 8.9 MG/DL Microbiology Date/Time Procedure Status Source Growth 12/22/16 17:19 Gram Stain - Final Complete Wound Foot 12/22/16 17:19 Wound Culture - Final Complete Group B Beta Strep 12/22/16 17:19 Acid Fast Stain - Final Resulted Wound Foot NO ACID FAST BACILLI SEEN 12/22/16 17:19 Mycobacterial Culture Resulted Wound Foot Pending 12/22/16 17:19 Fungal Smear - Final Resulted Wound Foot NO FUNGAL ELEMENTS SEEN. 12/22/16 17:19 Fungal Culture Resulted Wound Foot Pending Physical Exam Remarks Right foot not much improvement in the redness of the foot some edema is down, mild serosanguineous drainage from dorsal and plantar incision, foot remains warm with pulses intact, limited ROm of foot due to pain Assessment & Plan A/P Right foot DM infection, ulcer- slowly improving SP Incision and drainage 12/22. WBC is down, Temp stable Continue ABX IV in home town, reviewed w medicine and ID. Bandage changed, needs woundcare FU in home town, if foot worsens, understand they to proceed to hospital. Ja Levi DPShelley Dec 25, 2016 17:18
[2016-12-25] MEDS: PRAVASTATIN SOD 20 MG TAB PO SCH (21:02)
[2016-12-26 00:27] VITALS: BP 106/54; PULSE 56; RESP 21; TEMP 96.1; O2SAT 94
[2016-12-26] MEDS ORDERED: PHARMACY ORDERED LAB ONE (02:45)
[2016-12-26 04:50] VITALS: BP 137/63; PULSE 73; RESP 20; TEMP 96.6; O2SAT 94
[2016-12-26] MEDS: HEPARIN SODIUM - SQ 10,000 UNITS/ML VIAL SQ SCH ×2 (05:51→14:17)
[2016-12-26] MEDS: ISOSORBIDE MONONITRATE 60 MG TAB PO SCH (05:51)
[2016-12-26 06:07] LABS: AUTOMATED NEUTROPHIL # 6.5 TH/MM3 (1.8-7.7); BASOPHIL % 0.5 % (0.0-2.0); EOSINOPHIL # 0.3 TH/MM3 (0-0.4); EOSINOPHIL % 3.2 % (0.0-4.0); HEMATOCRIT 35.8 % (39.0-51.0); HEMO FLAGS DIFF FINAL; LYMPH % 11.8 % (9.0-44.0); MEAN CELL VOLUME 82.7 FL (80.0-100.0); MEAN CORPUSCULAR HEMOGLOBIN 26.1 PG (27.0-34.0); MEAN CORPUSCULAR HGB CONC 31.5 % (32.0-36.0); MONO % 7.5 % (0.0-8.0); PLATELET COUNT 236 TH/MM3 (150-450); RED BLOOD COUNT 4.33 MIL/MM3 (4.50-5.90); RED CELL DISTRIBUTION WIDTH 16.6 % (11.6-17.2); WHITE BLOOD COUNT 8.4 TH/MM3 (4.0-11.0)
[2016-12-26] MEDS: INSULIN ASPART SUPPLEMENTAL SCALE SQ SCH ×2 (06:22→12:05)
[2016-12-26 06:36] LABS: BICARBONATE 25.4 MEQ/L (21.0-32.0); POTASSIUM 4.5 MEQ/L (3.5-5.1)
[2016-12-26 08:00] VITALS: BP 123/73; PULSE 83; RESP 20; TEMP 99.7; O2SAT 94
[2016-12-26] MEDS: DOCUSATE SODIUM 50 MG/SENNA 8.6 MG TAB PO SCH ×2 (09:06→09:09)
[2016-12-26] MEDS: ACETAMINOPHEN/HYDROcodone 325 MG/10 MG TAB PO PRN ×2 (09:06→14:16)
[2016-12-26] MEDS: INSULIN DETEMIR 100 UNITS/ML VIAL SQ SCH (09:07)
[2016-12-26] MEDS: ASPIRIN 81 MG CHEW TAB PO SCH (09:08)
[2016-12-26] MEDS: METOPROLOL SUCCINATE 25 MG EXTENDED RELEASE TAB PO SCH (09:09)
[2016-12-26] MEDS: SODIUM CHLORIDE 0.9% FLUSH 10 ML FLUSH IV FLUSH SCH (09:10)
[2016-12-26] MEDS: GABAPENTIN 400 MG CAP PO SCH (09:10)
--- NOTE | 2016-12-26 09:33 | HHI.FF ---
Infusion Therapy Location of Infusion Therapy: Home Health Care IV Infusion Order Patient Information Patient Weight 135 kg Diagnosis: Diagnosis GBS severe infection foot Coded Allergies: No Known Allergies (Unverified , 12/19/16) Administer Medication Ceftriaxone 2 grams IV q 24 hours Stop Treatment: Jan 08, 2017 Additional Information Venous access: Other (Midline) Additional Instructions [x] Peripheral flush and dressing changes per protocol [x] Implanted port and central long line teamster: * Implanted port: 10 ml Normal Saline followed by 5 ml Heparin 100 units/ml Heparin flush after each use and monthly to maintain. [] May leave port accessed during therapy. [] May leave peripheral site accessed for duration of therapy. [x] If patient has SOB or respiratory distress, check oxygen saturation. If less than 90% or clinical signs of respiratory distress, administer oxygen at 2 L/min. via nasal cannula and notify physician. [x] Anaphylaxis/Reaction orders: * Stop infusion. * Keep IV line open with saline flush. * Notify physician. * Monitor vital signs every 15 minutes until symptoms resolve. * Check Oxygen saturation; Oxygen at 2 L/min. via nasal cannula if less than 90% or clinical signs of respiratory distress. * Administer diphenhydramine (Benadryl) 25 mg IV STAT, (unless patient has received as pre-med). May repeat once, if necessary. * Solu-Cortef 250 mg IVP over 30-60 seconds, use 100 mg vials for each dissolution. * Epinephrine (1mg/1 ml) 0.3 mg subcutaneously or IVP now with any signs of respiratory distress. * Check with physician for new additional pre-med orders if patient is re- challenged or re-treated. [x] May remove PICC line when treatment complete, after confirming with Physician. [x] If the patient is admitted to the hospital, the ED, or transferred via [facility] , complete transfer form including medication reconciliation order sheet. Laboratory Tests Weekly Labs: CBC w/diff, Creatinine, LFT's (Hepatic function test) (Labes every Thursday - copy to patient's speech and language assistant) Nelly Hayden MD Dec 26, 2016 09:33
--- NOTE | 2016-12-26 10:51 | HHI.IDPN ---
Subjective Subjective Remarks Patient is a 61-year-old male, with diabetes, presented to the hospital complaining of increasing redness on his right foot. Patient developed a blister on the lateral aspect of his right foot around December 19. He has neuropathy and didn't really feel anything when he showed up. He has not been wearing any new footwear, and has been using the same tennis shoes with socks. He has not been doing a lot of walking and actually uses a scooter to move around because he doesn't really walk very well. The blister popped open, and due to the diabetes, the patient went to the emergency room. He was evaluated, and there was no DVT, there was apparently no erythema noted, and the patient was just instructed to keep the area clean and rapid, and he was not given any antibiotics. There was no fever in the emergency room. Patient started feeling pretty bad with development of fever and chills, fatigue, malaise, decreased appetite, and he noted increasing redness on his right foot. He also was having pain and increasing swelling. He presented to the hospital for further evaluation and treatment. He denies any nausea or vomiting or diarrhea prior to admission. There's been no urinary complaints or any respiratory complaint. Patient was seen by podiatry, and they did I&D of an abscess on his right foot. Culture grew strep agalactiae. Notes reviewed Temps 99+ overnight Pain slightly better D/W Dr Seth podiatry yesterday No need for further I and D CM trying to arrange for home IV Abx in [place] D/W Dr Hart (Med team) No other complaint Antibiotics Rocephin Lines PIV Past Medical History DM with peripheral neuropathy Hypertension Hyperlipidemia Asthma Sleep apnea Obesity CAD: required 4-6 stents and CABG [place] x2 last episode 2014 Past Surgical History CABG Stents x4-6 Adenoid/tonsill/uvula removal for sleep apnea Allergies: Coded Allergies: No Known Allergies (Unverified , 12/19/16) Objective . Vital Signs Date Time Temp Pulse Resp B/P Pulse Ox O2 Delivery O2 Flow Rate FiO2 12/26/16 08:00 99.7 83 20 123/73 94 12/26/16 04:50 96.6 73 20 137/63 94 12/26/16 00:27 96.1 56 21 106/54 94 12/25/16 20:00 99.1 69 21 117/57 94 12/25/16 20:00 64 12/25/16 19:46 93 21 12/25/16 16:00 98.2 73 17 119/64 92 12/25/16 12:00 98.2 70 19 117/59 94 12/25/16 11:22 94 21 12/25/16 12/25/16 12/26/16 15:00 23:00 07:00 Intake Total 600 ml 480 ml 480 ml Balance 600 ml 480 ml 480 ml Intake Oral 600 ml 480 ml 480 ml IV Total 0 ml # Voids 5 2 2 # Bowel Movements 0 . Laboratory Tests Test 12/25/16 12/26/16 10:57 05:20 White Blood Count 8.8 TH/MM3 8.4 TH/MM3 Red Blood Count 4.20 MIL/MM3 4.33 MIL/MM3 Hemoglobin 10.9 GM/DL 11.3 GM/DL Hematocrit 34.8 % 35.8 % Mean Corpuscular Volume 82.8 FL 82.7 FL Mean Corpuscular Hemoglobin 26.0 PG 26.1 PG Mean Corpuscular Hemoglobin 31.4 % 31.5 % Concent Red Cell Distribution Width 16.6 % 16.6 % Platelet Count 226 TH/MM3 236 TH/MM3 Mean Platelet Volume 7.1 FL 7.0 FL Neutrophils (%) (Auto) 79.1 % 77.0 % Lymphocytes (%) (Auto) 11.3 % 11.8 % Monocytes (%) (Auto) 7.2 % 7.5 % Eosinophils (%) (Auto) 2.0 % 3.2 % Basophils (%) (Auto) 0.4 % 0.5 % Neutrophils # (Auto) 7.0 TH/MM3 6.5 TH/MM3 Lymphocytes # (Auto) 1.0 TH/MM3 1.0 TH/MM3 Monocytes # (Auto) 0.6 TH/MM3 0.6 TH/MM3 Eosinophils # (Auto) 0.2 TH/MM3 0.3 TH/MM3 Basophils # (Auto) 0.0 TH/MM3 0.0 TH/MM3 CBC Comment DIFF FINAL DIFF FINAL Differential Comment Laboratory Tests Test 12/25/16 12/26/16 10:57 05:00 Sodium Level 129 MEQ/L 134 MEQ/L Potassium Level 4.8 MEQ/L 4.5 MEQ/L Chloride Level 96 MEQ/L 98 MEQ/L Carbon Dioxide Level 25.4 MEQ/L 25.4 MEQ/L Anion Gap 8 MEQ/L 11 MEQ/L Blood Urea Nitrogen 17 MG/DL 15 MG/DL Creatinine 1.06 MG/DL 0.95 MG/DL Estimat Glomerular Filtration 71 ML/MIN 80 ML/MIN Rate Random Glucose 222 MG/DL 194 MG/DL Calcium Level 8.9 MG/DL 9.4 MG/DL Imaging Foot X-Ray 12/22/16 0000 Signed Impressions: Service Date/Time: Thursday, December 22, 2016 17:32 - CONCLUSION: Post operative study as described. Sinan Machado MD Lower Extremity CT 12/21/16 0000 Signed Impressions: Service Date/Time: Wednesday, December 21, 2016 18:39 - CONCLUSION: 1. Focal soft-tissue swelling adjacent to the right 5th metatarsal head suggesting cellulitis. No definite underlying lytic erosive changes are noted. If there is strong clinical concern for acute osteomyelitis, a three-phase bone scan or MRI of the foot with contrast would be more sensitive in this patient. 2. Small Achilles calcaneal spur. 3. No acute fracture or dislocation. 4. No radiopaque foreign body identified. Andre Hernandez MD Physical Exam GENERAL: awake and alert, not in respiratory distress. SKIN: Warm and dry. No generalized rash, no ecchymoses and no evidence of embolic lesions. HEAD: Atraumatic. Normocephalic. No temporal wasting, or tenderness. EYES: Notus conjunctiva. No petechia or hemorrhage. Pupils equal, round and reactive to light. Extraocular movements full and intact. No scleral icterus. No injection or drainage. EARS, NOSE AND THROAT: Nose without bleeding or purulent nasal discharge. No sinus tenderness. Mucous membranes pink and moist. No oral lesions noted. No exudate. No oral thrush. NECK: Trachea midline. Supple and not tender, no meningeal signs CARDIOVASCULAR: Regular rate and rhythm. No murmurs, rubs or gallops heard RESPIRATORY: Clear to auscultation. Breath sounds equal bilaterally. No rales , wheezing or rhonchi ABDOMEN: Soft, non-tender, nondistended. Bowel sounds present and normoactive. No guarding. No rebound. No organomegaly. He has a candidal rash in groin and low abdomen EXTREMITIES: No clubbing, cyanosis. No calf tenderness. Well perfused and warm. No effusions, has good ROM in his joints. RLE - swollen with dry dressing. Erythema on his R leg looks better. No odor. NEUROLOGICAL: Non-focal PSYCHIATRIC: Normal affect, calm and cooperative. LINE: No evidence of infection Assessment & Plan Remarks IMPRESSION DFI, with an ulcer, and abscess, S/P I and D, C/S GBS - no osteo on imaging studies and intraop Obesity Sleep apnea Fevers post op, better RECOMMENDATION Continue Rocephin to cover the GBS - if he leaves today, ok to give Rocephin early - when he gets to [place] Thursday, can get his dose for that day I have filled out Abx form Midline OK to DC once arrangements made He needs fup with podiatry in [place] and with his primary care - he can then decide for ID fup in [place] D/W CM D/W Nelly Loredo MD Dec 26, 2016 10:51
[2016-12-26 12:00] VITALS: BP 114/65; PULSE 76; RESP 18; TEMP 97.8; O2SAT 94
--- NOTE | 2016-12-26 13:41 | HHI.DCPOC ---
Discharge Care Plan Goals to Promote Your Health * To prevent worsening of your condition and complications follow all discharge instructions * To maintain your health at the optimal level take all medications as prescribed Directions to Meet Your Goals Take your medications as prescribed Follow your dietary instruction Follow activity as directed Keep your appointments as scheduled Take your immunizations and boosters as scheduled If your symptoms worsen call your PCP, if no PCP go to Urgent Care Center or Emergency Room Smoking is Dangerous to Your Health. Avoid second hand smoke Call the 24-hour hour crisis hotline for domestic abuse at Jessika Meza MD R3 Dec 26, 2016 13:41 Milagros Hart MD Dec 26, 2016 14:45
--- NOTE | 2016-12-26 13:44 | HHI.FPPN ---
Subjective Remarks No acute events overnight. Afebrile, vital signs stable. Patient states he is ready to go home. Awaiting antibiotic arrangement and then patient will be cleared for discharge. (Jessika Meza MD R3) Objective Vitals Vital Signs Date Time Temp Pulse Resp B/P Pulse Ox O2 Delivery O2 Flow Rate FiO2 12/26/16 12:00 97.8 76 18 114/65 94 12/26/16 08:00 99.7 83 20 123/73 94 12/26/16 04:50 96.6 73 20 137/63 94 12/26/16 00:27 96.1 56 21 106/54 94 12/25/16 20:00 99.1 69 21 117/57 94 12/25/16 20:00 64 12/25/16 19:46 93 21 12/25/16 16:00 98.2 73 17 119/64 92 I/O 12/25/16 12/25/16 12/25/16 12/26/16 12/26/16 12/26/16 07:00 15:00 23:00 07:00 15:00 23:00 Intake Total 380 ml 600 ml 480 ml 480 ml Balance 380 ml 600 ml 480 ml 480 ml Intake Oral 380 ml 600 ml 480 ml 480 ml IV Total 0 ml # Voids 2 5 2 2 # Bowel Movements 0 (Jessika Meza MD R3) Result Diagram: 12/26/16 0520 12/26/16 0500 Objective Remarks GENERAL: This is a well-nourished, well-developed patient, in no apparent distress. Resting comfortably in bed. SKIN: Right foot status post I&D and exploration of wound, dressed. Dressing clean/dry/intact. EYES: Pupils equal round and reactive. Extraocular motions intact. Very mild scleral icterus. No injection or drainage. ENT: Nose without bleeding, purulent drainage. Throat without erythema, tonsillar hypertrophy or exudate. Airway patent. NECK: Trachea midline. No lymphadenopathy. CARDIOVASCULAR: Regular rate and rhythm without murmurs, gallops, or rubs. RESPIRATORY: Clear to auscultation. Breath sounds equal bilaterally. No wheezes , rales, or rhonchi. GASTROINTESTINAL: Abdomen soft, non-tender, nondistended. No guarding. MUSCULOSKELETAL: Extremities without clubbing, cyanosis. No calf tenderness. 2+ pedal pulses bilaterally. 1+ pitting edema to the mid [place]. NEUROLOGICAL: Awake and alert. Motor grossly within normal limits. Decreased sensation on bilateral feet. Normal speech. (Jessika Meza MD R3) A/P Assessment and Plan 61-year-old male with history significant for uncontrolled diabetes. Admitted for right foot cellulitis Discharge Planning To home today with home health and IV antibiotics 2 weeks (Jessika Meza MD R3) Attending Attestation Patient seen and examined with Dr. Meza Case reviewed and discussed with resident team, RN, ID, Dr. Hayden Agree with plan of care as discussed with me and documented in the resident note. (Milagros Hart MD) Problem List: (1) Cellulitis of right foot Status: Acute Plan: Leukocytosis resolved. Patient febrile to 100.2 on 12/23. OR on 12/22 for I&D and wound exploration. Elevated ESR, no x-ray signs of osteomyelitis. Soft tissue cellulitis per podiatry note Continue antibiotics, wound culture showing group B strep, consult infectious disease Given concern for persistent and spreading infection, patient will need 2 weeks of IV antibiotics per infectious disease recommendation. DC vancomycin and Zosyn, started Rocephin. Wound culture showed group B beta strep HOWIE equivocal however stenotic vessels Clear from podiatry standpoint * Vancomycin (12/21-12/24) * Zosyn (12/21-12/24) * Patient to be discharged with home health and 2 weeks of IV Rocephin for group B strep cellulitis. (2) Constipation Status: Resolved Plan: Likely secondary to pain medication. Patient started on scheduled Casandra- Colace with improvement of his symptoms. (3) Electrolyte abnormality Status: Resolved Plan: Denies history of CKD. Found to have hyponatremia and hyperkalemia. Improved. DC IV fluids (4) DM (diabetes mellitus) Status: Chronic Plan: History of uncontrolled diabetes with last reported A1c of 11. -Hold home Levemir dosing -Levemir 20 units BID -Low-dose sliding scale -Continue home gabapentin (5) CAD (coronary artery disease) Status: Chronic Plan: Significant cardiac history requiring multiple cardiac caths and a CABG. -Continue home Imdur, metoprolol, pravastatin, lisinopril (6) Nutrition, metabolism, and development symptoms Status: Acute Plan: Diet: Diabetic diet Fluids: Hep-Lock IV Electrolytes: Continue to monitor DVT prophylaxis: SCDs on left leg, heparin GI prophylaxis: None indicated (Jessika Meza MD R3) Jessika Meza MD R3 Dec 26, 2016 13:44 Milagros Hart MD Dec 26, 2016 14:46
--- NOTE | 2016-12-26 13:45 | HHI.DS ---
Jessika Meza MD R3 12/26/16 1345: Discharge Summary Admission Date Dec 21, 2016 at 13:22 Discharge Date: Dec 26, 2016 Admitting Diagnosis right foot celluliits, hyponatremia, hyperkalemia (1) Cellulitis of right foot Diagnosis: Principal Plan: Leukocytosis resolved. Patient febrile to 100.2 on 12/23. OR on 12/22 for I&D and wound exploration. Elevated ESR, no x-ray signs of osteomyelitis. Soft tissue cellulitis per podiatry note Continue antibiotics, wound culture showing group B strep, consult infectious disease Given concern for persistent and spreading infection, patient will need 2 weeks of IV antibiotics per infectious disease recommendation. DC vancomycin and Zosyn, started Rocephin. Wound culture showed group B beta strep HOWIE equivocal however stenotic vessels Clear from podiatry standpoint * Vancomycin (12/21-12/24) * Zosyn (12/21-12/24) * Patient to be discharged with home health and 2 weeks of IV Rocephin for group B strep cellulitis. (2) Constipation Diagnosis: Secondary Plan: Likely secondary to pain medication. Patient started on scheduled Casandra- Colace with improvement of his symptoms. (3) Electrolyte abnormality Diagnosis: Principal Plan: Denies history of CKD. Found to have hyponatremia and hyperkalemia. Improved. DC IV fluids (4) DM (diabetes mellitus) Diagnosis: Secondary Plan: History of uncontrolled diabetes with last reported A1c of 11. -Hold home Levemir dosing -Levemir 20 units BID -Low-dose sliding scale -Continue home gabapentin (5) CAD (coronary artery disease) Diagnosis: Secondary Plan: Significant cardiac history requiring multiple cardiac caths and a CABG. -Continue home Imdur, metoprolol, pravastatin, lisinopril [facility] Infectious disease Brief History Patient is a 61-year-old male with a history of uncontrolled diabetes. Presented today due to worsening right foot cellulitis. 2 days ago patient was found to have a right foot blister at which time he presented to the ED. Did not appear to be infectious at the time and was discharged with no antibiotics. He presented again today due to worsening malaise, decreased appetite, fatigue , mild subjective fever, dizziness, headache. Pain described as a constant ache. No associated nausea/vomiting or dysuria. No history of trauma or preceding incident to lesion. Was walking around the water at [place] without shoes when he noticed initial blister. No ocean or beach exposure. History is significant for prior MRSA infections of lower legs, back, face. Severe peripheral neuropathy limits sensation of feet. CBC/BMP: 12/26/16 0520 12/26/16 0500 Significant Findings Laboratory Tests Test 12/24/16 12/25/16 12/26/16 12/26/16 04:55 10:57 05:00 05:20 Red Blood Count 4.06 MIL/MM3 4.20 MIL/MM3 4.33 MIL/MM3 (4.50-5.90) (4.50-5.90) (4.50-5.90) Hemoglobin 11.0 GM/DL 10.9 GM/DL 11.3 GM/DL (13.0-17.0) (13.0-17.0) (13.0-17.0) Hematocrit 33.3 % 34.8 % 35.8 % (39.0-51.0) (39.0-51.0) (39.0-51.0) Neutrophils (%) (Auto) 79.3 % 79.1 % 77.0 % (16.0-70.0) (16.0-70.0) (16.0-70.0) Monocytes (%) (Auto) 8.9 % (0.0-8.0) Lymphocytes # (Auto) 0.9 TH/MM3 (1.0-4.8) Sodium Level 132 MEQ/L 129 MEQ/L 134 MEQ/L (136-145) (136-145) (136-145) Estimat Glomerular Filtration 69 ML/MIN (>89) 71 ML/MIN (>89) 80 ML/MIN (>89) Rate Random Glucose 146 MG/DL 222 MG/DL 194 MG/DL (74-106) (74-106) (74-106) Calcium Level 8.3 MG/DL (8.5-10.1) Mean Corpuscular Hemoglobin 26.0 PG 26.1 PG (27.0-34.0) (27.0-34.0) Mean Corpuscular Hemoglobin 31.4 % 31.5 % Concent (32.0-36.0) (32.0-36.0) Chloride Level 96 MEQ/L (98-107) Imaging Last Impressions Foot X-Ray 12/22/16 0000 Signed Impressions: Service Date/Time: Thursday, December 22, 2016 17:32 - CONCLUSION: Post operative study as described. Sinan Machado MD Lower Extremity CT 12/21/16 0000 Signed Impressions: Service Date/Time: Wednesday, December 21, 2016 18:39 - CONCLUSION: 1. Focal soft-tissue swelling adjacent to the right 5th metatarsal head suggesting cellulitis. No definite underlying lytic erosive changes are noted. If there is strong clinical concern for acute osteomyelitis, a three-phase bone scan or MRI of the foot with contrast would be more sensitive in this patient. 2. Small Achilles calcaneal spur. 3. No acute fracture or dislocation. 4. No radiopaque foreign body identified. Andre Hernandez MD PE at Discharge GENERAL: This is a well-nourished, well-developed patient, in no apparent distress. Resting comfortably in bed. SKIN: Right foot status post I&D and exploration of wound, dressed. Dressing clean/dry/intact. EYES: Pupils equal round and reactive. Extraocular motions intact. Very mild scleral icterus. No injection or drainage. ENT: Nose without bleeding, purulent drainage. Throat without erythema, tonsillar hypertrophy or exudate. Airway patent. NECK: Trachea midline. No lymphadenopathy. CARDIOVASCULAR: Regular rate and rhythm without murmurs, gallops, or rubs. RESPIRATORY: Clear to auscultation. Breath sounds equal bilaterally. No wheezes , rales, or rhonchi. GASTROINTESTINAL: Abdomen soft, non-tender, nondistended. No guarding. MUSCULOSKELETAL: Extremities without clubbing, cyanosis. No calf tenderness. 2+ pedal pulses bilaterally. 1+ pitting edema to the mid [place]. NEUROLOGICAL: Awake and alert. Motor grossly within normal limits. Decreased sensation on bilateral feet. Normal speech. Hospital Course Patient admitted for right foot cellulitis along with hyponatremia and hyperkalemia. His electrolytes improved with IV fluid hydration and have remained stable. Patient was taken to the operating room with podiatry where an I&D was performed and wound culture grew group B strep. Infectious disease was consulted and recommended 2 weeks of IV Rocephin which was set up for patient to receive at home. He was discharged in stable condition and will follow-up with his primary care physician on Thursday. Pt Condition on Discharge: Good Discharge Disposition: Discharge Home Discharge Instructions DIET: Follow Instructions for: As Tolerated, No Restrictions Activities you can perform: Regular-No Restrictions Follow up Referrals: PCP Follow-up - 1 Week New Medications: Ceftriaxone Inj (Ceftriaxone Inj) 2 Gm/50 Ml Bagp 2 GM IV Q24H Infection Days 14 Ref 0 BAG Continued Medications: Albuterol 8.5 GM Inh (Proair Hfa 8.5 GM Inh) 90 Mcg/Act Aer 2 PUFF INH Q4-6H 108 mcg/actuation PRN SHORTNESS OF BREATH #1 Ref 0 INHALER Cholecalciferol (Vitamin D) 1,000 Unit Tab Unknown Dose PO DAILY Nutritional Supplement #1 Ref 0 BOTTLE Gabapentin (Gabapentin) 400 Mg Cap 400 CAP PO TID #30 Ref 0 CAP Insulin Detemir Inj (Levemir Inj) 1,000 unit/ 10 ML Vial 62 UNITS SQ BID Do not mix with any other Insulin. Blood Sugar Management Ref 0 VIAL Lisinopril (Lisinopril) 10 Mg Tab 10 MG PO DAILY #30 Ref 0 TAB Lovastatin (Lovastatin) 20 Mg Tab 20 MG PO HS Cholesterol Management #30 Ref 0 TAB Magnesium Oxide (Magnesium) 400 Mg Tablet PO DAILY Metoprolol Tartrate (Metoprolol Tartrate) 100 Mg Tab Unknown Dose PO BID #60 Ref 0 TAB Sitagliptin (Januvia) 100 Mg Tab Unknown Dose PO DAILY Blood Sugar Management #30 Ref 0 TAB ([Imdur]) Milagros Hart MD 12/26/16 1445: Discharge Summary CBC/BMP: 12/26/16 0520 12/26/16 0500 Discharge Instructions Follow up Referrals: PCP Follow-up - 1 Week New Medications: Ceftriaxone Inj (Ceftriaxone Inj) 2 Gm/50 Ml Bagp 2 GM IV Q24H Infection Days 14 Ref 0 BAG Continued Medications: Albuterol 8.5 GM Inh (Proair Hfa 8.5 GM Inh) 90 Mcg/Act Aer 2 PUFF INH Q4-6H 108 mcg/actuation PRN SHORTNESS OF BREATH #1 Ref 0 INHALER Cholecalciferol (Vitamin D) 1,000 Unit Tab Unknown Dose PO DAILY Nutritional Supplement #1 Ref 0 BOTTLE Gabapentin (Gabapentin) 400 Mg Cap 400 CAP PO TID #30 Ref 0 CAP Insulin Detemir Inj (Levemir Inj) 1,000 unit/ 10 ML Vial 62 UNITS SQ BID Do not mix with any other Insulin. Blood Sugar Management Ref 0 VIAL Lisinopril (Lisinopril) 10 Mg Tab 10 MG PO DAILY #30 Ref 0 TAB Lovastatin (Lovastatin) 20 Mg Tab 20 MG PO HS Cholesterol Management #30 Ref 0 TAB Magnesium Oxide (Magnesium) 400 Mg Tablet PO DAILY Metoprolol Tartrate (Metoprolol Tartrate) 100 Mg Tab Unknown Dose PO BID #60 Ref 0 TAB Sitagliptin (Januvia) 100 Mg Tab Unknown Dose PO DAILY Blood Sugar Management #30 Ref 0 TAB ([Imdur]) Jessika Meza MD R3 Dec 26, 2016 13:45 Milagros Hart MD Dec 26, 2016 14:45
[2016-12-26] MEDS ORDERED: cefTRIAXone INJ 2,000 MG in SODIUM CHLORIDE 0.9% INJ 100 ML IV SCH (14:00)
== END 2016-12-26 14:47 | disposition home or self-care (01) | DRG 623 ==
LOC: NEPE 10:30 → NEDA 13:22 → N07A 15:43
PROVIDERS: ADMIT Family Medicine; ATTEND Family Medicine
PROC: 0J9Q0ZX Drainage of Right Foot Subcutaneous Tissue and Fascia, Open Approach, Diagnostic (ICD-10-PCS; 2016-12-22)
PROC: 0JBQ0ZZ Excision of Right Foot Subcutaneous Tissue and Fascia, Open Approach (ICD-10-PCS; principal; 2016-12-22 16:53)
DX: E11.621 Type 2 diabetes mellitus with foot ulcer (principal); L03.115 Cellulitis of right lower limb; L97.519 Non-pressure chronic ulcer of other part of right foot with unspecified severity; N17.9 Acute kidney failure, unspecified; Q60.0 Renal agenesis, unilateral; E11.42 Type 2 diabetes mellitus with diabetic polyneuropathy; Z68.42 Body mass index [BMI] 45.0-49.9, adult; E87.1 Hypo-osmolality and hyponatremia; L02.611 Cutaneous abscess of right foot; E87.5 Hyperkalemia; E11.65 Type 2 diabetes mellitus with hyperglycemia; G47.30 Sleep apnea, unspecified; B95.1 Streptococcus, group B, as the cause of diseases classified elsewhere; I10 Essential (primary) hypertension; E78.5 Hyperlipidemia, unspecified; J45.909 Unspecified asthma, uncomplicated; E66.9 Obesity, unspecified; T39.95XA Adverse effect of unspecified nonopioid analgesic, antipyretic and antirheumatic, initial encounter; K59.03 Drug induced constipation; I25.10 Atherosclerotic heart disease of native coronary artery without angina pectoris; Z79.82 Long term (current) use of aspirin; Z95.5 Presence of coronary angioplasty implant and graft; Z95.1 Presence of aortocoronary bypass graft; Z79.84 Long term (current) use of oral hypoglycemic drugs; Z79.4 Long term (current) use of insulin; Z86.14 Personal history of Methicillin resistant Staphylococcus aureus infection; I25.2 Old myocardial infarction
CPT/HCPCS: 36569; 73620; 73630; 73700; 76000; 76937; 80048; 80053; 80202; 82948; 83605; 85025; 85652; 86140; 86403; 87015; 87040; 87070; 87102; 87116; 87205; 87206; 90471; 90714; 93005; 93922; 96374; 96375; J0131; J0696; J1644; J1815; J2250; J2270; J2405; J2543; J3010; J3370; J7030; J7040; J7050; L3260